=== PATIENT | female | born 1975 | race Caucasian/White ===

== ENCOUNTER 2021-02-25 16:44 | Inpatient (IN) ==
[2021-02-25] MEDS ORDERED: dexAMETHasone 6 MG in SYRINGE 0 ML IV ONE (17:10)
--- NOTE | 2021-02-25 17:21 | Emergency Department Note ---
History of Present Illness General Chief complaint: Shortness of Breath/Dyspnea Stated complaint: +COVID / SOB Time Seen by Provider: 02/25/21 16:52 Source: patient History of Present Illness Provider complaint: Shortness of breath Onset (ago): week(s) Location: chest Pain Consistency: + constant Quality: + other (Shortness of breath) Relieved By: + other (Oxygen) Associated symptoms: + chest pain (Central chest pain only when she coughs. No pain now.), + cough, + fever/chills (Chills no recorded fever), + malaise, + nausea/vomiting and + shortness of breath This is a 45-year-old female with no significant past medical history presenting with shortness of breath and flulike symptoms for the past week. The patient was tested for COVID-19 and tested +2 days ago. She has vomiting and diarrhea. She complains of shortness of breath which is now better on oxygen. She has a nonproductive cough as well as chills and tactile temperatures. She denies any recorded fever. She is not sure if she can taste or smell. She has chest pain but only when she coughs. She states it is in the central part of her chest and she does not have any now. She has had some leg swelling as she states that she has been in bed most of the time this week. She feels malaise. She denies any leg pain or cigarette use. She has not been vaccinated for Covid. Home Medications Medication Instructions Recorded Confirmed Type Unobtainable 02/25/21 02/25/21 History Allergies Allergy/AdvReac Type Severity Reaction Status Date / Time Unable to Assess Allergy Unverified 02/25/21 20:28 Past Med/Surg History Medical History No pertinent past medical history Social History Smoking Status: Never smoker Feels Safe at Home: Yes Review of Systems See HPI for pertinent positives & negatives. and A total of 10 systems reviewed and were otherwise negative Physical Exam Vital Signs Vital Signs - 24 hr 02/25/21 16:59 02/25/21 17:41 02/25/21 18:30 Pulse Rate 106 H Pulse Rate [Left] 115 H Respiratory Rate 18 24 Respiratory Depth Shallow Respiratory Pattern Tachypnea Blood Pressure 123/79 Blood Pressure [Left Arm] 114/76 Blood Pressure Mean 93 Blood Pressure Mean [Left Arm] 88 Pulse Oximetry 97 92 Oxygen Delivery Method Nasal Cannula Oxygen Flow Rate 6 Sepsis Recent Fever Within 48 Hours No Sepsis New/Unexplained Change in Mental Status No Sepsis Action Taken by Nursing No Action Required 02/25/21 20:02 Pulse Rate 102 H Pulse Rate [Left] 102 H Respiratory Rate 24 Respiratory Depth Respiratory Pattern Blood Pressure Blood Pressure [Left Arm] 112/87 Blood Pressure Mean Blood Pressure Mean [Left Arm] 95 Pulse Oximetry 95 Oxygen Delivery Method Nasal Cannula Oxygen Flow Rate 6 Sepsis Recent Fever Within 48 Hours Sepsis New/Unexplained Change in Mental Status Sepsis Action Taken by Nursing Constitutional: Vital signs reviewed. Eyes: Pupils are equal round reactive to light. Conjunctiva are noninjected. ENT: Pharynx is clear without erythema or exudate. Mucous membranes are slightly dry. Neck supple without meningeal signs. Respiratory: Crackles right base. Scattered rhonchi. Breath sounds are equal bilaterally. Cardiovascular: Tachycardic. Regular rhythm. GI: Soft, nondistended and nontender. Bowel sounds are present. Musculoskeletal: No peripheral edema. No lower extremity tenderness. Integumentary: No cyanosis. or jaundice. Neurological: The patient is awake and alert. No focal deficits. Psychiatric: Normal affect. Not anxious appearing. Course Administered Medications Heparin Sodium/Dextrose (Heparin Sodium/Dextrose) 25,000 units in 500 mls @ 0.02 mls/hr IV .Q[facility]H [facility]; Protocol Stop: 03/27/21 18:44 Last Admin: 02/25/21 18:56 Dose: 1,400 units/hr, 28 mls/hr Documented by: [id number] Cosigned by: [id number] Discontinued Medications Dexamethasone (Dexamethasone Sod Inj 4 Mg/Ml Vial) Confirm Administered Dose 8 mg .ROUTE .STK-MED ONE Stop: 02/25/21 17:29 Last Admin: 02/25/21 17:30 Dose: 8 mg Documented by: [id number] Heparin Sodium (Porcine) (Heparin Sod (Porcine) 1000 Unit/Ml) 1 units IV NOW ONE Stop: 02/25/21 18:45 Last Admin: 02/25/21 18:56 Dose: 5,000 units Documented by: [id number] Cosigned by: [id number] Dexamethasone 6 mg/ Syringe 1.5 mls @ 1 mls/min IV ONE ONE Stop: 02/25/21 17:11 Last Admin: 02/25/21 18:38 Dose: Not Given Documented by: [id number] Remdesivir 200 mg/ Sodium (Chloride) 250 mls @ 125 mls/hr IV ONE STA; Protocol Stop: 02/25/21 22:11 Last Admin: 02/25/21 21:07 Dose: 125 mls/hr Documented by: [id number] Ioversol (Optiray 320 125ml) 116 ml IV ONCE ONE Stop: 02/25/21 17:58 Last Admin: 02/25/21 17:57 Dose: 116 ml Documented by: [id number] Ondansetron HCl (Ondansetron Inj 2 Mg/Ml 2 Ml Vial) 4 mg IV NOW STA Stop: 02/25/21 17:24 Last Admin: 02/25/21 17:31 Dose: 4 mg Documented by: [id number] Critical Care Time Critical Care Time: Yes Total Critical Care Time: 45 I have personally spent approximately 45 minutes of critical care time in the direct management of this patient. This includes bedside care, interpretation of diagnostic studies, and testing, discussion with consultants, patient, and family members, and other required patient management activities. These minutes are in excess of all separately billable procedures. Medical Decision Making Differential Diagnosis COVID-19, multifocal pneumonia, hypoxemia, pulmonary embolism, pleural effusion Medical Records Attestation: I reviewed the patient's medical records. I did perform a limited focused review of portions of the patient's old chart on the electronic medical record. The patient has had no recent pertinent visits to this hospital. Home Medications Current Medication List: was personally reviewed by me Laboratory Data Attestation: I reviewed the patient's lab results. Result diagrams: 02/25/21 17:15 02/25/21 17:15 Lab Results 02/25/21 02/25/21 02/25/21 Range/Units 17:15 17:15 17:15 WBC 6.21 (4.8-10.8) K/uL RBC 5.10 (4.2-5.4) M/uL Hgb 14.5 (12.0-16.0) g/dL Hct 43.2 (37-47) % MCV 84.7 (80-100) fL MCH 28.4 (25-34) pg MCHC 33.6 (32-36) g/dL RDW Std Deviation 38.9 (36.4-46.3) fL RDW Coeff of Elias 12.5 (11.5-14.5) % Plt Count 204 (130-400) K/uL MPV 11.3 H (7.4-10.4) fL Immature Gran % (Auto) 0.3 % Neut % (Auto) 73.0 % Lymph % (Auto) 18.5 % Wilcox % (Auto) 7.4 % Eos % (Auto) 0.3 % Baso % (Auto) 0.5 % Neut # (Auto) 4.53 (1.4-6.5) K/uL Lymph # (Auto) 1.15 L (1.2-3.4) K/uL Wilcox # (Auto) 0.46 (0.11-0.59) K/uL Eos # (Auto) 0.02 (0-0.5) K/uL Baso # (Auto) 0.03 (0-0.2) K/uL Immature Gran # (Auto) 0.02 (0.00-0.02) K/uL PT Cancelled INR Cancelled APTT Cancelled PTT Ratio Cancelled D-Dimer Cancelled Sodium 138 (136-145) mmol/L Potassium 3.8 (3.5-5.1) mmol/L Chloride 106 (98-107) mmol/L Carbon Dioxide 20 L (21-32) mmol/L Anion Gap 13.0 H (3-11) BUN 25 H (7-18) mg/dl Creatinine 0.89 (0.6-1.2) mg/dl Est Cr Clr Drug Dosing 101.3 ml/min Est GFR ( Amer) 92.0 ml/min Est GFR (Non-Af Amer) 79.4 ml/min BUN/Creatinine Ratio 27.7 H (10-20) Glucose 211 H (70-99) mg/dl Calcium 9.4 (8.5-10.1) mg/dl Total Bilirubin 0.5 (0.2-1) mg/dl AST 80 H (15-37) U/L ALT 90 H (12-78) U/L Alkaline Phosphatase 80 (45-117) U/L Troponin I 0.562 H* (0-0.045) ng/ml C-Reactive Protein 6.71 H (0-0.29) mg/dl Total Protein 8.1 (6.4-8.2) gm/dl Albumin 3.1 L (3.4-5.0) gm/dl Globulin 5.0 H (2.5-4.0) gm/dl Albumin/Globulin Ratio 0.6 L (0.9-2) 02/25/21 02/25/21 Range/Units 18:23 18:23 WBC (4.8-10.8) K/uL RBC (4.2-5.4) M/uL Hgb (12.0-16.0) g/dL Hct (37-47) % MCV (80-100) fL MCH (25-34) pg MCHC (32-36) g/dL RDW Std Deviation (36.4-46.3) fL RDW Coeff of Elias (11.5-14.5) % Plt Count (130-400) K/uL MPV (7.4-10.4) fL Immature Gran % (Auto) % Neut % (Auto) % Lymph % (Auto) % Wilcox % (Auto) % Eos % (Auto) % Baso % (Auto) % Neut # (Auto) (1.4-6.5) K/uL Lymph # (Auto) (1.2-3.4) K/uL Wilcox # (Auto) (0.11-0.59) K/uL Eos # (Auto) (0-0.5) K/uL Baso # (Auto) (0-0.2) K/uL Immature Gran # (Auto) (0.00-0.02) K/uL PT 11.5 INR 1.1 APTT 23.4 PTT Ratio 0.9 D-Dimer 15453 H* Sodium (136-145) mmol/L Potassium (3.5-5.1) mmol/L Chloride (98-107) mmol/L Carbon Dioxide (21-32) mmol/L Anion Gap (3-11) BUN (7-18) mg/dl Creatinine (0.6-1.2) mg/dl Est Cr Clr Drug Dosing ml/min Est GFR ( Amer) ml/min Est GFR (Non-Af Amer) ml/min BUN/Creatinine Ratio (10-20) Glucose (70-99) mg/dl Calcium (8.5-10.1) mg/dl Total Bilirubin (0.2-1) mg/dl AST (15-37) U/L ALT (12-78) U/L Alkaline Phosphatase (45-117) U/L Troponin I (0-0.045) ng/ml C-Reactive Protein Cancelled (0-0.29) mg/dl Total Protein (6.4-8.2) gm/dl Albumin (3.4-5.0) gm/dl Globulin (2.5-4.0) gm/dl Albumin/Globulin Ratio (0.9-2) Imaging Data Radiologist's Impression: Chest CTA 02/25/21 17:08 CT ANGIOGRAM OF THE CHEST CLINICAL HISTORY: Dyspnea. Covid. COMPARISON STUDY: No priors. TECHNIQUE: Following the IV administration of 116 cc of Optiray 320, CT angiogram of the chest was performed from the upper abdomen to the thoracic inlet utilizing the pulmonary embolus protocol. Images are reviewed in the axial, sagittal, and coronal planes. 3-D MIPS images are created and assessed. IV contrast was administered without complication. A dose lowering technique was utilized adhering to the principles of ALARA. CT DOSE: 499.24 mGycm FINDINGS: Thyroid: Imaged portions of the thyroid gland are normal in size and attenuation. Thoracic aorta: The thoracic aorta is normal in caliber and demonstrates standard 3-vessel arch anatomy. No dissection is seen. Pulmonary vasculature: The pulmonary trunk is normal in caliber. There is thrombus within the distal right main pulmonary artery. This extends into the right upper, middle, and lower lobe pulmonary arteries into segmental and subseg mental branches. There is poor embolus within the distal left main pulmonary artery. This extends into the left upper and lower lobe pulmonary arteries into segmental and subsegmental branches. Heart: The heart is normal in size and without pericardial effusion. Lungs and pleural spaces: Evaluation of the lung parenchyma is compromised by motion artifact. Extensive/multifocal airspace consolidation is seen throughout both lungs. No pleural effusion is identified. The trachea and central airways are clear. Mediastinum: There is no mediastinal lymphadenopathy. Marily: Clear. Axillae: There is no axillary lymphadenopathy. Upper abdomen: Partially visualized upper abdominal viscera is within normal limits. Skeletal structures: No lytic or blastic bony lesions are seen. IMPRESSION: 1. Extensive bilateral pulmonary embolus as detailed above. 2. Diffuse/multifocal airspace consolidation is seen throughout both lungs and c onsistent with the reported history of a viral pneumonia. Radiographic follow-up to resolution is recommended. 3. No pleural effusion. 4. Additional findings as above. ACT 112: Negative or not required by law. Electronically signed by: Saeid Ashley M.D. 02/25/2021 6:21 PM ECG Data Attestation: I personally reviewed and interpreted this ECG as follows: Indication: + chest pain and + SOB/dyspnea Rate (beats per minute): [address] segments: + T-wave inversions (Anterolateral) ECG Findings: + Other (Atrial enlargement); no PVCs Comparison ECG Date: no prior available MDM Narrative I did evaluate the patient as noted above. She is presenting with shortness of breath and flulike symptoms. She was diagnosed with COVID-19 2 days ago. She has had symptoms for a week. I did obtain history from the patient via a [place]onian revising clerk. The patient is hypoxemic with a pulse ox of 85% on room air. She was placed on supplemental oxygen via nasal cannula. Her O2 saturation went up to 97%. IV access was established. I did treat her with dexamethasone [address] I did place an order for continuous cardiac monitoring. The monitor showed sinus tachycardia at a rate of 108 bpm. I did order and personally review the patient's 12-lead EKG as described above. She has some T wave inversions anterior laterally. No ST elevations. No prior EKGs available. She does state that her chest pain is only present when she coughs and is currently gone. I did order and review the patient's blood work as noted in the electronic medical record. CBC is unremarkable without leukocytosis or anemia. Electrolytes shows a carbon dioxide of 20 likely from her tachypnea. LFTs are elevated with an AST and ALT of 80 and 90. Glucose is elevated at 211 as well. Troponin is elevated at 0.562. D-dimer is over 13,000. I did order a CT angiogram of the chest. I did review the images myself as well as the radiology report as described above. She has extensive bilateral pulmonary emboli. She also has diffuse multifocal airspace consolidations consistent with pneumonia. I did treat the patient with heparin including a bolus and a continuous drip. The patient was informed of her test results. I did discuss the case with the hospitalist and child welfare caseworker. Impression & Plan Acute hypoxemic respiratory failure, Multifocal pneumonia, Pulmonary embolism, bilateral, COVID-19, Hyperglycemia Discharge Plan Visit Data Chief Complaint: Shortness of Breath/Dyspnea Stated Complaint: +COVID / SOB ED Provider: Tian العراقي Discharge Problem: Acute hypoxemic respiratory failure, Multifocal pneumonia, Pulmonary embolism, bilateral, COVID-19, Hyperglycemia Patient Disposition: Admitted As Inpatient Forms Stand Alone Forms: My [facility] Prescriptions Prescriptions: No Action Unobtainable RF: 0 Referrals Referrals: PCP,NO [Primary Care Provider] -
[2021-02-25] MEDS ORDERED: ONDANSETRON INJ 2 MG/ML 2 ML VIAL IV STA (17:23)
[2021-02-25 17:27] LABS: Basophils # (auto) 0.03 K/uL (0-0.2); Basophils % (auto) 0.5 %; Eosinophils # (auto) 0.02 K/uL (0-0.5); Eosinophils % (auto) 0.3 %; Hematocrit (blood only) 43.2 % (37-47); Hemoglobin 14.5 g/dL (12.0-16.0); Immature Granulocytes # (auto) 0.02 K/uL (0.00-0.02); Immature Granulocytes % (auto) 0.3 %; Lymphocytes # (auto) 1.15 K/uL (1.2-3.4); Lymphocytes % (auto) 18.5 %; Mean Corpuscular Hemoglobin 28.4 pg (25-34); Mean Corpuscular Hgb Conc 33.6 g/dL (32-36); Mean Corpuscular Volume 84.7 fL (80-100); Mean Platelet Volume 11.3 fL (7.4-10.4); Monocytes # (auto) 0.46 K/uL (0.11-0.59); Monocytes % (auto) 7.4 %; Neutrophils # (auto) 4.53 K/uL (1.4-6.5); Platelet Count 204 K/uL (130-400); RDW Coefficient of Variation 12.5 % (11.5-14.5); RDW Standard Deviation 38.9 fL (36.4-46.3); White Blood Count 6.21 K/uL (4.8-10.8)
[2021-02-25] MEDS ORDERED: DEXAMETHASONE SOD INJ 4 MG/ML VIAL ONE (17:28)
[2021-02-25 17:46] LABS: Albumin Level 3.1 gm/dl (3.4-5.0); BUN Creatinine Ratio 27.7 (10-20); Calcium 9.4 mg/dl (8.5-10.1); Creatinine Clr Calc Pharmacy 101.3 ml/min; Est GFR (Non-African American) 79.4 ml/min; Potassium 3.8 mmol/L (3.5-5.1)
[2021-02-25] MEDS ORDERED: OPTIRAY 320 125ml IV ONE (17:57)
[2021-02-25 18:12] LABS: Albumin Globulin Ratio 0.6 (0.9-2); Bilirubin,Total 0.5 mg/dl (0.2-1); Total Protein 8.1 gm/dl (6.4-8.2); Troponin I 0.562 ng/ml (0-0.045)
--- NOTE | 2021-02-25 18:22 | CT Scan Report ---
CT ANGIOGRAM OF THE CHEST CLINICAL HISTORY: Dyspnea. Covid. COMPARISON STUDY: No priors. TECHNIQUE: Following the IV administration of 116 cc of Optiray 320, CT angiogram of the chest was pe rformed from the upper abdomen to the thoracic inlet utilizing the pulmonary embolus protocol. Images are reviewed in the axial, sagittal, and coronal planes. 3-D MIPS images are created and assessed. I V contrast was administered without complication. A dose lowering technique was utilized adhering to the principles of ALARA. CT DOSE: 499.24 mGycm FINDINGS: Thyroid: Imaged portions of the thyroid gland are normal in size and attenuation. Thoracic aorta: The thoracic aorta is normal in caliber and demonstrates standard 3-vessel arch anato my. No dissection is seen. Pulmonary vasculature: The pulmonary trunk is normal in caliber. There is thrombus within the distal right main pulmonary artery. This extends into the right upper, middle, and lower lobe pulmonary ludy spencer into segmental and subsegmental branches. There is poor embolus within the distal left main pulm onary artery. This extends into the left upper and lower lobe pulmonary arteries into segmental and s ubsegmental branches. Heart: The heart is normal in size and without pericardial effusion. Lungs and pleural spaces: Evaluation of the lung parenchyma is compromised by motion artifact. Extens yelena/multifocal airspace consolidation is seen throughout both lungs. No pleural effusion is identifie d. The trachea and central airways are clear. Mediastinum: There is no mediastinal lymphadenopathy. Marily: Clear. Axillae: There is no axillary lymphadenopathy. Upper abdomen: Partially visualized upper abdominal viscera is within normal limits. Skeletal structures: No lytic or blastic bony lesions are seen. IMPRESSION: 1. Extensive bilateral pulmonary embolus as detailed above. 2. Diffuse/multifocal airspace consolidation is seen throughout both lungs and consistent with the re ported history of a viral pneumonia. Radiographic follow-up to resolution is recommended. 3. No pleural effusion. 4. Additional findings as above. ACT 112: Negative or not required by law. Electronically signed by: Saeid Ashley M.D. 02/25/2021 6:21 PM
[2021-02-25] MEDS ORDERED: Heparin IV Adult Wt-Based Standard WITH Bolus Protocol IV STA (18:29)
[2021-02-25] MEDS ORDERED: HEPARIN SOD (PORCINE) 1000 UNIT/ML IV ONE (18:44)
[2021-02-25] MEDS: HEPARIN SODIUM/DEXTROSE 25,000 UNITS/500 ML BAG IV SCH (18:56)
[2021-02-25 19:13] LABS: C Reactive Protein 6.71 mg/dl (0-0.29)
[2021-02-25 19:14] LABS: INR 1.1 (0.9-1.1); Partial Thromboplastin Ratio 0.9; Partial Thromboplastin Time 23.4 Seconds (21.0-31.0); Prothrombin Time 11.5 Seconds (9.0-12.0)
[2021-02-25 19:29] LABS: D Dimer 13520 ug/L FEU (0-500)
[2021-02-25] MEDS ORDERED: REMDESIVIR 200 MG in SODIUM CHLORIDE 0.9% 210 ML IV STA (20:12)
--- NOTE | 2021-02-25 21:23 | History and Physical Report ---
DATE OF ADMISSION: 02/25/2021 CHIEF COMPLAINT: Shortness of breath. HISTORY OF PRESENT ILLNESS: This is a 45-year-old female with no significant past medical history who presents with shortness of breath. The patient does not speak Swazi. She is from [place]. I used translation services to get a history and physical. The patient says she has symptoms for more than a week now with cough, shortness of breath, poor appetite, loss of sense of smell and taste. She tested COVID positive. As per the ER, patient was tested COVID positive 2 days ago, comes with worsening shortness of breath. She denies any headache. No blurred visions, no earache, no runny nose, no sore throat, denies any chest pain, no nausea, no vomiting. She has some abdominal discomfort when she tries to eat. She is not moving her bowels because she is not eating. Normal bladder movements. Denies any hematuria or burning micturition. No rash. No travel history. Not vaccinated. In the ER, she was hypoxemic, currently requiring 6 liters of oxygen. With oxygen, she is resting comfortably and able to answering comfortably. PAST MEDICAL HISTORY: As mentioned above. PAST SURGICAL HISTORY: None. MEDICATIONS: None. FAMILY HISTORY: Father had stomach cancer, mother had diabetes. SOCIAL HISTORY: Denies any smoking, no alcohol use. REVIEW OF SYSTEMS: As per HPI. Rest of the review of systems is negative. PHYSICAL EXAMINATION: GENERAL: The patient is obese, not in acute distress. VITAL SIGNS: Temperature afebrile, pulse 102, respiratory rate 24, blood pressure 112/87, oxygen 95% on 6 liters. HEENT: Pupils equal, round and reactive to light. Oral mucosa moist. NECK: No JVD or neck masses. CARDIOVASCULAR: S1 and S2 heard. Regular rate and rhythm. No murmur, no gallop. RESPIRATORY: Normal AP diameter. No accessory muscle use. Mild bibasilar crackles. No wheezing. ABDOMEN: Soft, bowel sounds present, nontender, no distention. CENTRAL NERVOUS SYSTEM: Alert and awake. Obeys commands. No facial droop. Speech is clear. Moves extremities. EXTREMITIES: No edema, no erythema. LABORATORY DATA: WBC 6.2, hemoglobin 14.4, hematocrit 43.2, platelets 204. PT is 11.5, INR 1.1, APTT 23.4. D-dimer 13,520. Sodium 138, potassium 3.8, chloride 106, bicarbonate 20, BUN 25, creatinine 0.8, serum glucose 211, calcium 9.4, total bilirubin 0.5, AST 80, ALT 90, alkaline phosphatase 88. Troponin I of 0.56. C-reactive protein 6.7. IMAGING DATA: CT of the chest: Extensive bilateral pulmonary embolus, diffuse multifocal airspace consolidation seen throughout both lung worthy consistent with reported history of viral pneumonia. No pleural effusions. EKG: Sinus tachycardia at a rate of 106. Q waves in inferior leads. ASSESSMENT AND PLAN: This is a 45-year-old female who presents with COVID pneumonia, hypoxia and pulmonary embolism. 1. COVID pneumonia, hypoxia: Requiring 6 liters of oxygen currently. Bilateral extensive infiltrates in the CAT scan. Meets criteria for remdesivir. Emergency Room gave her Decadron. We will continue with Decadron 6 mg daily and remdesivir and follow the remdesivir laboratories. We will also follow inflammatory markers. We will repeat CRP in a.m. and troponin in a.m. and LDH, ferritin. We will also follow up on D-dimer and procalcitonin levels. Closely monitor in the telemetry floor. 2. Elevated troponin: Mostly from demand ischemia from above. We will follow serial enzymes. Consider getting an echocardiogram. 3. Diabetes: The patient has no known history of diabetes. The patient has family history of diabetes, her mother had diabetes. Sugars are 211. We will follow HbA1c level. We will place her on Lantus 5 units b.i.d. and insulin sliding scale. Follow blood sugars while the patient on steroids. 4. Bilateral pulmonary embolism on CAT scan: Started on IV heparin, which we will continue. Can consider lower extremity Doppler and echocardiogram. 5. Deep venous thrombosis prophylaxis: On IV heparin. DISPOSITION: Closely monitor in tele floor. Level 1 full code. Expect to discharge home and follow with family doctor. Job ID: [id number] [facility]
[2021-02-25] MEDS ORDERED: NITROGLYCERIN SL 0.4 MG/TAB TAB SL PRN (23:05)
[2021-02-25] MEDS ORDERED: ACETAMINOPHEN 325 MG TAB PO PRN (23:05)
[2021-02-25] MEDS ORDERED: ONDANSETRON INJ 2 MG/ML 2 ML VIAL IV PRN (23:05)
[2021-02-26] MEDS: SODIUM CHLORIDE 0.9% 10ML FLUSH IV SCH (02:46)
[2021-02-26 03:43] LABS: Partial Thromboplastin Ratio 1.7; Partial Thromboplastin Time 44.8 Seconds (21.0-31.0)
[2021-02-26] MEDS: Heparin IV Adult Wt-Based Standard WITH Bolus Protocol IV SCH ×17 (04:23→17:33)
[2021-02-26 05:56] LABS: Basophils # (auto) 0.01 K/uL (0-0.2); Basophils % (auto) 0.2 %; Hematocrit (blood only) 40.2 % (37-47); Hemoglobin 13.7 g/dL (12.0-16.0); Immature Granulocytes # (auto) 0.02 K/uL (0.00-0.02); Immature Granulocytes % (auto) 0.4 %; Lymphocytes # (auto) 0.91 K/uL (1.2-3.4); Mean Corpuscular Hemoglobin 28.5 pg (25-34); Mean Corpuscular Hgb Conc 34.1 g/dL (32-36); Mean Corpuscular Volume 83.8 fL (80-100); Mean Platelet Volume 11.1 fL (7.4-10.4); Monocytes # (auto) 0.44 K/uL (0.11-0.59); Monocytes % (auto) 9.2 %; Neutrophils % (auto) 71.2 %; Platelet Count 190 K/uL (130-400); RDW Coefficient of Variation 12.5 % (11.5-14.5); White Blood Count 4.78 K/uL (4.8-10.8)
[2021-02-26 06:34] LABS: Albumin Level 2.7 gm/dl (3.4-5.0); BUN Creatinine Ratio 29.7 (10-20); Bilirubin Direct 0.2 mg/dl (0-0.2); Calcium 8.8 mg/dl (8.5-10.1); Est GFR (African American) 124.8 ml/min; Est GFR (Non-African American) 107.7 ml/min; Magnesium 2.6 mg/dl (1.8-2.4); Potassium 3.7 mmol/L (3.5-5.1)
[2021-02-26 06:43] LABS: Bilirubin,Total 0.4 mg/dl (0.2-1); C Reactive Protein 6.36 mg/dl (0-0.29); Ferritin 372.8 ng/ml (8-388); Total Protein 7.3 gm/dl (6.4-8.2); Troponin I 0.38 ng/ml (0-0.045)
[2021-02-26 06:47] LABS: Estimated Average Glucose 217 mg/dl; Hemoglobin A1C 9.2 % (4.5-5.6)
[2021-02-26 06:59] LABS: D Dimer 16020 ug/L FEU (0-500)
[2021-02-26] MEDS: INSULIN ASPART 100 UNITS/ML 3 ML PEN SC SCH ×5 (09:17→21:00)
[2021-02-26] MEDS: INSULIN GLARGINE SOLOSTAR 100 UNITS/ML 3 ML PEN SC SCH ×3 (09:20→21:00)
--- NOTE | 2021-02-26 09:31 | Electrocardiogram Report ---
Test Reason : Blood Pressure : / mmHG Vent. Rate : 106 BPM Atrial Rate : 106 BPM P-R Int : 132 ms QRS Dur : 074 ms QT Int : 338 ms P-R-T Axes : 039 -10 -21 degrees QTc Int : 448 ms Sinus tachycardia Possible Left atrial enlargement possible Inferior infarct , age undetermined Abnormal ECG No previous ECGs available Confirmed by Chandana Mcrae ([id number]) on 02/26/2021 9:31:11 AM Referred By: REFERRED SELF Confirmed By:Benjamin Mcrae
[2021-02-26 11:05] LABS: Partial Thromboplastin Ratio 1.4; Partial Thromboplastin Time 35.9 Seconds (21.0-31.0)
[2021-02-26] MEDS ORDERED: HEPARIN SOD (PORCINE) 1000 UNIT/ML IV ONE (11:30)
[2021-02-26] MEDS ORDERED: GLUCOSE 10 TABS/TUBE PO PRN (11:45)
[2021-02-26] MEDS ORDERED: GLUCAGON FOR INJ 1 MG VIAL IM PRN (11:45)
[2021-02-26] MEDS ORDERED: DEXTROSE 50% 50 ML SYRINGE IV PRN (11:45)
[2021-02-26] MEDS ORDERED: GLUCOSE 40% GEL 15 GM TUBE PO PRN (11:45)
[2021-02-26] MEDS ORDERED: CARBOHYDRATES FOR HYPOGLYCEMIA PO PRN (11:45)
[2021-02-26] MEDS: dexAMETHasone 6 MG in SYRINGE 0 ML IV SCH (12:05)
[2021-02-26] MEDS: HEPARIN SODIUM/DEXTROSE 25,000 UNITS/500 ML BAG IV SCH (12:07)
--- NOTE | 2021-02-26 18:25 | Hospitalist Progress Note ---
Date of Service February 26, 2021 Assessment & Plan (1) Acute hypoxemic respiratory failure: Plan: Secondary to COVID-19 pneumonia and pulmonary embolism Has been maintaining saturation with 2 L of nasal cannula Remains stable and may be a little bit better compared with yesterday (2) COVID-19: Plan: Family members has had Covid but without symptoms She has diagnosed with Covid during this admission (3) Multifocal pneumonia: Plan: Secondary to COVID-19 pneumonia Has been getting remdesivir and dexamethasone Requiring 2 L of oxygen to maintain saturation We will continue current treatment We will give cough suppressants as needed (4) Pulmonary embolism, bilateral: Plan: Noted to have bilateral pulmonary embolism Has been getting intravenous heparin Maintenance therapy will be discussed on improvement (5) Hyperglycemia: Plan: May have diabetes We will check hemoglobin A1c Plan: DVT prophylaxis IV heparin Admission and Anticipated Discharge Date Admission Date: February 25, 2021 Subjective 02/26/2021 The patient seen and examined in telemetry unit and in Covid room She has been feeling a little better since admission Has cough and is requiring 2 L of oxygen to maintain saturation Review of Systems Review of Systems: All systems reviewed and are unremarkable except as noted below Respiratory: + cough, + chest congestion and + dyspnea Physical Exam Physical Exam: Sitting at the edge of the bed with shortness of breath Constitutional: well developed, well nourished, + ill appearing and + obese Eyes: PERRL, conjunctivae normal, anicteric sclerae ENMT: external ear and nose normal, oropharynx normal Neck: trachea midline, no thyromegaly Respiratory: + respiratory distress, + labored breathing and + uses accessory muscles Auscultation: + diminished lung sounds and + crackles (Bibasilar crackles) Cardiovascular: Rate/Rhythm: regular rate and regular rhythm; not tachycardic Heart Sounds: normal S1 and normal S2; no murmur Gastrointestinal (Abdomen): normal bowel sounds, soft, nontender, no hepatosplenomegaly Musculoskeletal: No acute arthritis in any joint Neurologic: Alert, awake and oriented x3 Lymphatic: no cervical or axillary lymphadenopathy Results & Data Results & Data ([facility]) Vital Signs (Past 12 Hours) Vital Signs Temp Pulse Pulse Resp BP Pulse Ox 02/26/21 15:00 36.7 C 73 22 127/79 95 02/26/21 11:53 36.4 C L 85 20 126/72 93 02/26/21 07:54 36.5 C 87 18 117/77 91 02/26/21 07:15 78 Laboratory Results Short CBC 02/26/21 Range/Units 05:23 WBC 4.78 L (4.8-10.8) K/uL Hgb 13.7 (12.0-16.0) g/dL Hct 40.2 (37-47) % Plt Count 190 (130-400) K/uL BMP 02/26/21 05:23 Sodium 139 Potassium 3.7 Chloride 105 Carbon Dioxide 24 BUN 20 H Creatinine 0.67 Glucose 256 H Calcium 8.8 Cardiac Enzymes 02/26/21 02/26/21 Range/Units 05:23 10:42 Troponin I 0.380 H* 0.279 H* (0-0.045) ng/ml Liver Function 02/26/21 Range/Units 05:23 Total Bilirubin 0.4 (0.2-1) mg/dl Direct Bilirubin 0.2 (0-0.2) mg/dl AST 42 H (15-37) U/L ALT 68 (12-78) U/L Alkaline Phosphatase 75 (45-117) U/L Albumin 2.7 L (3.4-5.0) gm/dl Medications Administered Current Inpatient Medications Acetaminophen (Acetaminophen 325 Mg Tab) 650 mg PO Q4H PRN PRN Reason: Pain or Fever Stop: 03/27/21 23:04 Dextrose (Dextrose 50% 50 Ml Syringe) 25 - 50 ml IV UD PRN; Protocol PRN Reason: Hypoglycemia Protocol Stop: 03/28/21 11:44 Glucagon (Glucagon For Inj 1 Mg Vial) 1 mg IM UD PRN; Protocol PRN Reason: Hypoglycemia Protocol Stop: 03/28/21 11:44 Glucose (Glucose 40% Gel 15 Gm Tube) 15 - 30 gm PO UD PRN; Protocol PRN Reason: Hypoglycemia Protocol Stop: 03/28/21 11:44 Glucose (Glucose 10 Tabs/Tube) 4 - 8 tabs PO UD PRN; Protocol PRN Reason: Hypoglycemia Protocol Stop: 03/28/21 11:44 Heparin Sodium/Dextrose (Heparin Sodium/Dextrose) 25,000 units in 500 mls @ 33 mls/hr IV .[id number] [facility]; Protocol Stop: 03/27/21 18:44 Last Admin: 02/26/21 12:07 Dose: 1,650 units/hr, 33 mls/hr Documented by: Remdesivir 100 mg/ Sodium (Chloride) 250 mls @ 250 mls/hr IV Q24H [facility]; Protocol Stop: 03/01/21 20:59 Dexamethasone 6 mg/ Syringe 1.5 mls @ 1 mls/min IV DAILY [facility] Stop: 03/08/21 11:59 Last Admin: 02/26/21 12:05 Dose: 1 mls/min Documented by: Insulin Aspart (Insulin Aspart 100 Units/Ml 3 Ml Pen) 0 units SC ACHS [facility] Stop: 03/27/21 23:29 Last Admin: 02/26/21 17:25 Dose: 9 units Documented by: Insulin Glargine (Insulin Glargine Solostar 100 Units/Ml 3 Ml Pen) 5 units SC BID [facility] Stop: 03/27/21 23:29 Last Admin: 02/26/21 09:20 Dose: 5 units Documented by: Miscellaneous (Carbohydrates For Hypoglycemia ) 15 - 30 gm PO UD PRN PRN Reason: Hypoglycemia Treatment Stop: 03/28/21 11:44 Nitroglycerin (Nitroglycerin Sl 0.4 Mg/Tab Tab) 0.4 mg SL UD PRN PRN Reason: Chest Pain Stop: 03/27/21 23:04 Ondansetron HCl (Ondansetron Inj 2 Mg/Ml 2 Ml Vial) 4 mg IV Q6H PRN PRN Reason: Nausea Stop: 03/27/21 23:04 Sodium Chloride (Sodium Chloride 0.9% 10ml Flush) 30 ml IV DAILY@2100 [facility] Stop: 03/01/21 21:01 Last Admin: 02/26/21 02:46 Dose: 30 ml Documented by:
[2021-02-26 18:41] LABS: Partial Thromboplastin Ratio 2.1
[2021-02-26 18:45] LABS: Partial Thromboplastin Time 54.5 Seconds (21.0-31.0)
[2021-02-26] MEDS: REMDESIVIR 100 MG in SODIUM CHLORIDE 0.9% 230 ML IV SCH (20:00)
[2021-02-27] MEDS: SODIUM CHLORIDE 0.9% 10ML FLUSH IV SCH ×2 (03:36→22:24)
[2021-02-27 06:29] LABS: Hematocrit (blood only) 40.2 % (37-47); Hemoglobin 13.4 g/dL (12.0-16.0); Mean Corpuscular Hemoglobin 28.2 pg (25-34); Mean Corpuscular Hgb Conc 33.3 g/dL (32-36); Mean Corpuscular Volume 84.6 fL (80-100); Mean Platelet Volume 10.8 fL (7.4-10.4); Platelet Count 200 K/uL (130-400); RDW Coefficient of Variation 12.3 % (11.5-14.5); Red Blood Count 4.75 M/uL (4.2-5.4); White Blood Count 7.12 K/uL (4.8-10.8)
[2021-02-27 06:56] LABS: Basophils # (auto) 0.01 K/uL (0-0.2); Basophils % (auto) 0.1 %; Immature Granulocytes # (auto) 0.04 K/uL (0.00-0.02); Immature Granulocytes % (auto) 0.6 %; Lymphocytes # (auto) 1.46 K/uL (1.2-3.4); Lymphocytes % (auto) 20.5 %; Monocytes # (auto) 0.78 K/uL (0.11-0.59); Neutrophils # (auto) 4.83 K/uL (1.4-6.5); Neutrophils % (auto) 67.8 %
[2021-02-27 07:08] LABS: BUN Creatinine Ratio 42.1 (10-20); C Reactive Protein 3.27 mg/dl (0-0.29); Calcium 8.7 mg/dl (8.5-10.1); Creatinine Clr Calc Pharmacy 201.5 ml/min; Est GFR (African American) 142.2 ml/min; Est GFR (Non-African American) 122.7 ml/min; Magnesium 1.7 mg/dl (1.8-2.4); Phosphorus 3.4 mg/dl (2.5-4.9); Potassium 3.8 mmol/L (3.5-5.1)
[2021-02-27 07:11] LABS: Partial Thromboplastin Ratio 2.1
[2021-02-27 07:14] LABS: Partial Thromboplastin Time 56.4 Seconds (21.0-31.0)
[2021-02-27] MEDS: dexAMETHasone 6 MG in SYRINGE 0 ML IV SCH (09:02)
[2021-02-27] MEDS: INSULIN GLARGINE SOLOSTAR 100 UNITS/ML 3 ML PEN SC SCH ×2 (09:10→20:58)
[2021-02-27] MEDS: INSULIN ASPART 100 UNITS/ML 3 ML PEN SC SCH ×4 (09:11→20:58)
--- NOTE | 2021-02-27 16:34 | Hospitalist Progress Note ---
Date of Service February 27, 2021 Assessment & Plan (1) Acute hypoxemic respiratory failure: Plan: Secondary to COVID-19 pneumonia and pulmonary embolism She feels a little better but is still requiring more oxygen up to 6 L/min to maintain saturation (2) COVID-19: Plan: Family members has had Covid but without symptoms She has diagnosed with Covid during this admission (3) Multifocal pneumonia: Plan: Secondary to COVID-19 pneumonia Has been getting remdesivir and dexamethasone Requiring 2 L of oxygen to maintain saturation We will continue current treatment Has been complaining of cough and congestion Inflammatory markers are improving We will try small dose of Lasix and continue with cough suppressant (4) Pulmonary embolism, bilateral: Plan: Noted to have bilateral pulmonary embolism Has been getting intravenous heparin Maintenance therapy will be discussed on improvement We will discuss about Coumadin and or DOAC from tomorrow (5) Hyperglycemia: Plan: May have diabetes We will check hemoglobin [id number] at 9.2 Will need antidiabetic medication on discharge Plan: DVT prophylaxis IV heparin Admission and Anticipated Discharge Date Admission Date: February 25, 2021 Subjective 02/26/2021 The patient seen and examined in telemetry unit and in Covid room She has been feeling a little better since admission Has cough and is requiring 2 L of oxygen to maintain saturation 02/27/2021 The patient was seen and examined in telemetry unit and in Covid room She has been feeling better but still requiring 6 L of oxygen to maintain saturation Complains to have some cough and minimal shortness of breath Review of Systems Review of Systems: All systems reviewed and are unremarkable except as noted below Respiratory: + cough, + chest congestion and + dyspnea Physical Exam Physical Exam: Sitting at the edge of the bed with shortness of breath Constitutional: well developed, well nourished, + ill appearing and + obese Eyes: PERRL, conjunctivae normal, anicteric sclerae ENMT: external ear and nose normal, oropharynx normal Neck: trachea midline, no thyromegaly Respiratory: + respiratory distress, + labored breathing and + uses accessory muscles Auscultation: + diminished lung sounds and + crackles (Bibasilar crackles) Cardiovascular: Rate/Rhythm: regular rate and regular rhythm; not tachycardic Heart Sounds: normal S1 and normal S2; no murmur Gastrointestinal (Abdomen): normal bowel sounds, soft, nontender, no hepatosplenomegaly Musculoskeletal: No acute arthritis in any joint Neurologic: Alert, awake and oriented x3 Lymphatic: no cervical or axillary lymphadenopathy Results & Data Results & Data ([facility]) Vital Signs (Past 12 Hours) Vital Signs Temp Pulse Pulse Resp BP Pulse Ox 02/27/21 07:58 36.7 C 67 20 126/77 94 02/27/21 07:00 55 L Laboratory Results Short CBC 02/27/21 Range/Units 06:19 WBC 7.12 (4.8-10.8) K/uL Hgb 13.4 (12.0-16.0) g/dL Hct 40.2 (37-47) % Plt Count 200 (130-400) K/uL BMP 02/27/21 06:19 Sodium 138 Potassium 3.8 Chloride 105 Carbon Dioxide 27 BUN 19 H Creatinine 0.45 L Glucose 257 H Calcium 8.7 Liver Function 02/27/21 Range/Units 06:19 AST 22 (15-37) U/L ALT 50 (12-78) U/L Medications Administered Current Inpatient Medications Acetaminophen (Acetaminophen 325 Mg Tab) 650 mg PO Q4H PRN PRN Reason: Pain or Fever Stop: 03/27/21 23:04 Dextrose (Dextrose 50% 50 Ml Syringe) 25 - 50 ml IV UD PRN; Protocol PRN Reason: Hypoglycemia Protocol Stop: 03/28/21 11:44 Glucagon (Glucagon For Inj 1 Mg Vial) 1 mg IM UD PRN; Protocol PRN Reason: Hypoglycemia Protocol Stop: 03/28/21 11:44 Glucose (Glucose 40% Gel 15 Gm Tube) 15 - 30 gm PO UD PRN; Protocol PRN Reason: Hypoglycemia Protocol Stop: 03/28/21 11:44 Glucose (Glucose 10 Tabs/Tube) 4 - 8 tabs PO UD PRN; Protocol PRN Reason: Hypoglycemia Protocol Stop: 03/28/21 11:44 Heparin Sodium/Dextrose (Heparin Sodium/Dextrose) 25,000 units in 500 mls @ 33 mls/hr IV .[id number] [facility]; Protocol Stop: 03/27/21 18:44 Last Titration: 02/27/21 04:33 Dose: Infused Documented by: Remdesivir 100 mg/ Sodium (Chloride) 250 mls @ 250 mls/hr IV Q24H [facility]; Protocol Stop: 03/01/21 20:59 Last Infusion: 02/26/21 21:00 Dose: Infused Documented by: Dexamethasone 6 mg/ Syringe 1.5 mls @ 1 mls/min IV DAILY [facility] Stop: 03/08/21 11:59 Last Admin: 02/27/21 09:02 Dose: 1 mls/min Documented by: Insulin Aspart (Insulin Aspart 100 Units/Ml 3 Ml Pen) 0 units SC ACHS [facility] Stop: 03/27/21 23:29 Last Admin: 02/27/21 12:22 Dose: 7 units Documented by: Insulin Glargine (Insulin Glargine Solostar 100 Units/Ml 3 Ml Pen) 5 units SC BID [facility] Stop: 03/27/21 23:29 Last Admin: 02/27/21 09:10 Dose: 5 units Documented by: Miscellaneous (Carbohydrates For Hypoglycemia ) 15 - 30 gm PO UD PRN PRN Reason: Hypoglycemia Treatment Stop: 03/28/21 11:44 Nitroglycerin (Nitroglycerin Sl 0.4 Mg/Tab Tab) 0.4 mg SL UD PRN PRN Reason: Chest Pain Stop: 03/27/21 23:04 Ondansetron HCl (Ondansetron Inj 2 Mg/Ml 2 Ml Vial) 4 mg IV Q6H PRN PRN Reason: Nausea Stop: 03/27/21 23:04 Sodium Chloride (Sodium Chloride 0.9% 10ml Flush) 30 ml IV DAILY@2100 [facility] Stop: 03/01/21 21:01 Last Admin: 02/27/21 03:36 Dose: 30 ml Documented by:
[2021-02-27] MEDS: FUROSEMIDE 40 MG in SYRINGE 0 ML IV SCH (17:17)
[2021-02-27] MEDS: HEPARIN SODIUM/DEXTROSE 25,000 UNITS/500 ML BAG IV SCH (18:54)
[2021-02-27] MEDS: guaiFENesin 600 MG TABCR PO SCH (20:43)
[2021-02-27] MEDS: REMDESIVIR 100 MG in SODIUM CHLORIDE 0.9% 230 ML IV SCH (20:43)
[2021-02-28] MEDS: HEPARIN SODIUM/DEXTROSE 25,000 UNITS/500 ML BAG IV SCH ×2 (07:14→13:11)
[2021-02-28 07:43] LABS: Basophils # (auto) 0.01 K/uL (0-0.2); Basophils % (auto) 0.1 %; Eosinophils # (auto) 0.03 K/uL (0-0.5); Eosinophils % (auto) 0.4 %; Hematocrit (blood only) 41.8 % (37-47); Immature Granulocytes # (auto) 0.07 K/uL (0.00-0.02); Immature Granulocytes % (auto) 0.9 %; Lymphocytes # (auto) 2.05 K/uL (1.2-3.4); Lymphocytes % (auto) 26.6 %; Mean Corpuscular Hemoglobin 28.1 pg (25-34); Mean Corpuscular Hgb Conc 33.5 g/dL (32-36); Mean Corpuscular Volume 83.9 fL (80-100); Mean Platelet Volume 11.2 fL (7.4-10.4); Monocytes # (auto) 0.79 K/uL (0.11-0.59); Monocytes % (auto) 10.2 %; Neutrophils # (auto) 4.76 K/uL (1.4-6.5); Neutrophils % (auto) 61.8 %; Platelet Count 219 K/uL (130-400); RDW Coefficient of Variation 12.1 % (11.5-14.5); Red Blood Count 4.98 M/uL (4.2-5.4); White Blood Count 7.71 K/uL (4.8-10.8)
[2021-02-28 08:02] LABS: BUN Creatinine Ratio 30.2 (10-20); Calcium 8.9 mg/dl (8.5-10.1); Creatinine Clr Calc Pharmacy 167.7 ml/min; Est GFR (Non-African American) 115.6 ml/min; Partial Thromboplastin Ratio 2.6; Potassium 3.5 mmol/L (3.5-5.1)
[2021-02-28 08:10] LABS: Partial Thromboplastin Time 68.2 Seconds (21.0-31.0)
[2021-02-28] MEDS: FUROSEMIDE 40 MG in SYRINGE 0 ML IV SCH (08:11)
[2021-02-28] MEDS: dexAMETHasone 6 MG in SYRINGE 0 ML IV SCH (08:11)
[2021-02-28] MEDS: guaiFENesin 600 MG TABCR PO SCH ×2 (08:11→21:01)
[2021-02-28] MEDS: INSULIN GLARGINE SOLOSTAR 100 UNITS/ML 3 ML PEN SC SCH ×2 (08:22→21:19)
[2021-02-28] MEDS: INSULIN ASPART 100 UNITS/ML 3 ML PEN SC SCH ×4 (08:22→21:18)
[2021-02-28 11:24] LABS: iSTAT Creatinine 0.9 mg/dl (0.6-1.3); iSTAT Hemoglobin 14.6 g/dl (12.0-16.0); iSTAT Ionized Calcium 1.17 mmol/l (1.12-1.32); iSTAT Potassium 3.8 mmol/L (3.3-5.0)
--- NOTE | 2021-02-28 17:47 | Hospitalist Progress Note ---
Date of Service February 28, 2021 Assessment & Plan (1) Acute hypoxemic respiratory failure: Plan: Secondary to COVID-19 pneumonia and pulmonary embolism She feels a little better but is still requiring more oxygen up to 6 L/min to maintain saturation Condition is better and requiring 2 L of oxygen to maintain saturation (2) COVID-19: Plan: Family members has had Covid but without symptoms She has diagnosed with Covid during this admission (3) Multifocal pneumonia: Plan: Secondary to COVID-19 pneumonia Has been getting remdesivir and dexamethasone Requiring 2 L of oxygen to maintain saturation We will continue current treatment Has been complaining of cough and congestion Inflammatory markers are improving We will try small dose of Lasix and continue with cough suppressant We will continue current management and she is clinically better (4) Pulmonary embolism, bilateral: Plan: Noted to have bilateral pulmonary embolism Has been getting intravenous heparin Maintenance therapy will be discussed on improvement We will discuss about Coumadin and or DOAC from tomorrow We will discuss about continued anticoagulation with the significant other/family members (5) Hyperglycemia: Plan: May have diabetes We will check hemoglobin [id number] at 9.2 Will need antidiabetic medication on discharge Increase Lantus to 10 mg twice daily and continue with SSI Plan: DVT prophylaxis IV heparin Admission and Anticipated Discharge Date Admission Date: February 25, 2021 Subjective 02/26/2021 The patient seen and examined in telemetry unit and in Covid room She has been feeling a little better since admission Has cough and is requiring 2 L of oxygen to maintain saturation 02/27/2021 The patient was seen and examined in telemetry unit and in Covid room She has been feeling better but still requiring 6 L of oxygen to maintain saturation Complains to have some cough and minimal shortness of breath 02/28/2021 The patient was seen and examined in telemetry unit and in Covid room She has been feeling much better today Cough is diminished and denies any shortness of breath at rest She has been requiring 2 L of oxygen via nasal cannula to maintain saturation Review of Systems Review of Systems: All systems reviewed and are unremarkable except as noted below Respiratory: + cough, + chest congestion and + dyspnea Physical Exam Physical Exam: Sitting at the edge of the bed with shortness of breath Constitutional: well developed, well nourished, + ill appearing and + obese Eyes: PERRL, conjunctivae normal, anicteric sclerae ENMT: external ear and nose normal, oropharynx normal Neck: trachea midline, no thyromegaly Respiratory: + respiratory distress, + labored breathing and + uses accessory muscles Auscultation: + diminished lung sounds and + crackles (Bibasilar crackles) Cardiovascular: Rate/Rhythm: regular rate and regular rhythm; not tachycardic Heart Sounds: normal S1 and normal S2; no murmur Gastrointestinal (Abdomen): normal bowel sounds, soft, nontender, no hepatosplenomegaly Musculoskeletal: No acute arthritis in any joint Neurologic: Alert, awake and oriented x3. No focal sensory and motor deficit appreciated Lymphatic: no cervical or axillary lymphadenopathy Results & Data Results & Data ([facility]) Vital Signs (Past 12 Hours) Vital Signs Temp Pulse Pulse Resp BP Pulse Ox 02/28/21 16:00 57 L 02/28/21 15:31 36.5 C 55 L 18 134/84 96 02/28/21 11:29 36.6 C 64 17 121/65 95 02/28/21 08:00 64 02/28/21 07:36 36.5 C 59 L 17 131/77 98 Laboratory Results Short CBC 02/28/21 Range/Units 07:17 WBC 7.71 (4.8-10.8) K/uL Hgb 14.0 (12.0-16.0) g/dL Hct 41.8 (37-47) % Plt Count 219 (130-400) K/uL BMP 02/28/21 07:17 Sodium 138 Potassium 3.5 Chloride 102 Carbon Dioxide 29 BUN 16 Creatinine 0.54 L Glucose 186 H Calcium 8.9 Liver Function 02/28/21 Range/Units 07:17 AST 22 (15-37) U/L ALT 43 (12-78) U/L Medications Administered Current Inpatient Medications Acetaminophen (Acetaminophen 325 Mg Tab) 650 mg PO Q4H PRN PRN Reason: Pain or Fever Stop: 03/27/21 23:04 Dextrose (Dextrose 50% 50 Ml Syringe) 25 - 50 ml IV UD PRN; Protocol PRN Reason: Hypoglycemia Protocol Stop: 03/28/21 11:44 Glucagon (Glucagon For Inj 1 Mg Vial) 1 mg IM UD PRN; Protocol PRN Reason: Hypoglycemia Protocol Stop: 03/28/21 11:44 Glucose (Glucose 40% Gel 15 Gm Tube) 15 - 30 gm PO UD PRN; Protocol PRN Reason: Hypoglycemia Protocol Stop: 03/28/21 11:44 Glucose (Glucose 10 Tabs/Tube) 4 - 8 tabs PO UD PRN; Protocol PRN Reason: Hypoglycemia Protocol Stop: 03/28/21 11:44 Guaifenesin (Guaifenesin 600 Mg Tabcr) 1,200 mg PO Q12 [facility] Stop: 03/29/21 20:59 Last Admin: 02/28/21 08:11 Dose: 1,200 mg Documented by: Heparin Sodium/Dextrose (Heparin Sodium/Dextrose) 25,000 units in 500 mls @ 31 mls/hr IV .[id number] [facility]; Protocol Stop: 03/27/21 18:44 Last Admin: 02/28/21 13:11 Dose: 1,550 units/hr, 31 mls/hr Documented by: Remdesivir 100 mg/ Sodium (Chloride) 250 mls @ 250 mls/hr IV Q24H [facility]; Protocol Stop: 03/01/21 20:59 Last Infusion: 02/27/21 21:30 Dose: 0 mls/hr Documented by: Dexamethasone 6 mg/ Syringe 1.5 mls @ 1 mls/min IV DAILY [facility] Stop: 03/08/21 11:59 Last Admin: 02/28/21 08:11 Dose: 1 mls/min Documented by: Furosemide 40 mg/ Syringe 4 mls @ 4 mls/min IV DAILY [facility] Stop: 03/29/21 16:44 Last Admin: 02/28/21 08:11 Dose: 4 mls/min Documented by: Insulin Aspart (Insulin Aspart 100 Units/Ml 3 Ml Pen) 0 units SC ACHS [facility] Stop: 03/27/21 23:29 Last Admin: 02/28/21 16:45 Dose: 11 units Documented by: Insulin Glargine (Insulin Glargine Solostar 100 Units/Ml 3 Ml Pen) 10 units SC BID [facility] Stop: 03/30/21 20:59 Miscellaneous (Carbohydrates For Hypoglycemia ) 15 - 30 gm PO UD PRN PRN Reason: Hypoglycemia Treatment Stop: 03/28/21 11:44 Nitroglycerin (Nitroglycerin Sl 0.4 Mg/Tab Tab) 0.4 mg SL UD PRN PRN Reason: Chest Pain Stop: 03/27/21 23:04 Ondansetron HCl (Ondansetron Inj 2 Mg/Ml 2 Ml Vial) 4 mg IV Q6H PRN PRN Reason: Nausea Stop: 03/27/21 23:04 Sodium Chloride (Sodium Chloride 0.9% 10ml Flush) 30 ml IV DAILY@2100 [facility] Stop: 03/01/21 21:01 Last Admin: 02/27/21 22:24 Dose: 30 ml Documented by:
[2021-02-28 18:00] LABS: Partial Thromboplastin Ratio 2.1
[2021-02-28 18:16] LABS: Partial Thromboplastin Time 56.1 Seconds (21.0-31.0)
[2021-02-28] MEDS: REMDESIVIR 100 MG in SODIUM CHLORIDE 0.9% 230 ML IV SCH (20:58)
[2021-02-28] MEDS: SODIUM CHLORIDE 0.9% 10ML FLUSH IV SCH (21:55)
[2021-03-01] MEDS: HEPARIN SODIUM/DEXTROSE 25,000 UNITS/500 ML BAG IV SCH (03:35)
[2021-03-01 07:16] LABS: Basophils # (auto) 0.01 K/uL (0-0.2); Basophils % (auto) 0.1 %; Eosinophils # (auto) 0.05 K/uL (0-0.5); Eosinophils % (auto) 0.6 %; Hematocrit (blood only) 41.2 % (37-47); Hemoglobin 13.8 g/dL (12.0-16.0); Immature Granulocytes % (auto) 1.2 %; Lymphocytes # (auto) 2.06 K/uL (1.2-3.4); Lymphocytes % (auto) 24.4 %; Mean Corpuscular Hemoglobin 28.1 pg (25-34); Mean Corpuscular Hgb Conc 33.5 g/dL (32-36); Mean Corpuscular Volume 83.9 fL (80-100); Monocytes # (auto) 0.83 K/uL (0.11-0.59); Monocytes % (auto) 9.8 %; Neutrophils % (auto) 63.9 %; Platelet Count 240 K/uL (130-400); RDW Coefficient of Variation 12.1 % (11.5-14.5); RDW Standard Deviation 36.9 fL (36.4-46.3); Red Blood Count 4.91 M/uL (4.2-5.4); White Blood Count 8.45 K/uL (4.8-10.8)
[2021-03-01 07:37] LABS: Partial Thromboplastin Ratio 2.5
[2021-03-01 07:41] LABS: Partial Thromboplastin Time 65.3 Seconds (21.0-31.0)
[2021-03-01 08:04] LABS: BUN Creatinine Ratio 32.7 (10-20); Calcium 8.6 mg/dl (8.5-10.1); Creatinine Clr Calc Pharmacy 212.9 ml/min; Est GFR (African American) 145.5 ml/min; Est GFR (Non-African American) 125.5 ml/min; Potassium 3.5 mmol/L (3.5-5.1)
--- NOTE | 2021-03-01 08:27 | Hospitalist Progress Note ---
Date of Service March 01, 2021 Assessment & Plan (1) Acute hypoxemic respiratory failure: Plan: Secondary to COVID-19 pneumonia and pulmonary embolism She feels a little better but is still requiring more oxygen up to 6 L/min to maintain saturation Condition is better and requiring 2 L of oxygen to maintain saturation Clinically improved but still requiring 2 L of oxygen (2) COVID-19: Plan: Family members has had Covid but without symptoms She has diagnosed with Covid during this admission (3) Multifocal pneumonia: Plan: Secondary to COVID-19 pneumonia Has been getting remdesivir and dexamethasone Requiring 2 L of oxygen to maintain saturation We will continue current treatment Has been complaining of cough and congestion Inflammatory markers are improving We will try small dose of Lasix and continue with cough suppressant We will continue current management and she is clinically better Remdesivir will be finished by tomorrow (4) Pulmonary embolism, bilateral: Plan: Acute Bilateral Pulmonary Embolism Has been getting intravenous heparin Maintenance therapy will be discussed on improvement We will discuss about Coumadin and or DOAC from tomorrow We will discuss about continued anticoagulation with the significant other/family members We will plan to put her on oral anticoagulants from tomorrow (5) Hyperglycemia: Plan: May have diabetes We will check hemoglobin [id number] at 9.2 Will need antidiabetic medication on discharge Increase Lantus to 10 mg twice daily and continue with SSI Plan: DVT prophylaxis IV heparin Admission and Anticipated Discharge Date Admission Date: February 25, 2021 Subjective 02/26/2021 The patient seen and examined in telemetry unit and in Covid room She has been feeling a little better since admission Has cough and is requiring 2 L of oxygen to maintain saturation 02/27/2021 The patient was seen and examined in telemetry unit and in Covid room She has been feeling better but still requiring 6 L of oxygen to maintain saturation Complains to have some cough and minimal shortness of breath 02/28/2021 The patient was seen and examined in telemetry unit and in Covid room She has been feeling much better today Cough is diminished and denies any shortness of breath at rest She has been requiring 2 L of oxygen via nasal cannula to maintain saturation 03/01/2021 The patient was seen and examined in telemetry unit and Covid room She has been feeling much better and she is out of bed on a chair Decreasing cough and decreasing shortness of breath Still requiring 2 L to maintain saturation Review of Systems Review of Systems: All systems reviewed and are unremarkable except as noted below Respiratory: + cough, + chest congestion and + dyspnea Physical Exam Physical Exam: Sitting at the edge of the bed with shortness of breath Constitutional: well developed, well nourished, + ill appearing and + obese Eyes: PERRL, conjunctivae normal, anicteric sclerae ENMT: external ear and nose normal, oropharynx normal Neck: trachea midline, no thyromegaly Respiratory: + respiratory distress, + labored breathing and + uses accessory muscles Auscultation: + diminished lung sounds and + crackles (Bibasilar crackles) Cardiovascular: Rate/Rhythm: regular rate and regular rhythm; not tachycardic Heart Sounds: normal S1 and normal S2; no murmur Gastrointestinal (Abdomen): normal bowel sounds, soft, nontender, no hepatosplenomegaly Musculoskeletal: No acute arthritis in any joint Neurologic: Alert, awake and oriented x3. No focal sensory and motor deficit appreciated Lymphatic: no cervical or axillary lymphadenopathy Results & Data Results & Data ([facility]) Vital Signs (Past 12 Hours) Vital Signs Temp Pulse Pulse Resp BP Pulse Ox 03/01/21 07:55 36.6 C 56 L 22 140/84 96 03/01/21 03:42 36.6 C 50 L 24 136/90 96 03/01/21 00:35 51 L 02/28/21 22:57 36.6 C 53 L 16 132/78 95 Laboratory Results Short CBC 03/01/21 Range/Units 07:04 WBC 8.45 (4.8-10.8) K/uL Hgb 13.8 (12.0-16.0) g/dL Hct 41.2 (37-47) % Plt Count 240 (130-400) K/uL BMP 03/01/21 07:04 Sodium 134 L Potassium 3.5 Chloride 103 Carbon Dioxide 28 BUN 14 Creatinine 0.42 L Glucose 189 H Calcium 8.6 Liver Function 03/01/21 Range/Units 07:04 AST 16 (15-37) U/L ALT 41 (12-78) U/L Medications Administered Current Inpatient Medications Acetaminophen (Acetaminophen 325 Mg Tab) 650 mg PO Q4H PRN PRN Reason: Pain or Fever Stop: 03/27/21 23:04 Dextrose (Dextrose 50% 50 Ml Syringe) 25 - 50 ml IV UD PRN; Protocol PRN Reason: Hypoglycemia Protocol Stop: 03/28/21 11:44 Glucagon (Glucagon For Inj 1 Mg Vial) 1 mg IM UD PRN; Protocol PRN Reason: Hypoglycemia Protocol Stop: 03/28/21 11:44 Glucose (Glucose 40% Gel 15 Gm Tube) 15 - 30 gm PO UD PRN; Protocol PRN Reason: Hypoglycemia Protocol Stop: 03/28/21 11:44 Glucose (Glucose 10 Tabs/Tube) 4 - 8 tabs PO UD PRN; Protocol PRN Reason: Hypoglycemia Protocol Stop: 03/28/21 11:44 Guaifenesin (Guaifenesin 600 Mg Tabcr) 1,200 mg PO Q12 [facility] Stop: 03/29/21 20:59 Last Admin: 03/01/21 09:07 Dose: 1,200 mg Documented by: Heparin Sodium/Dextrose (Heparin Sodium/Dextrose) 25,000 units in 500 mls @ 31 mls/hr IV .[id number] [facility]; Protocol Stop: 03/27/21 18:44 Last Titration: 03/01/21 07:49 Dose: 1,550 units/hr, 31 mls/hr Documented by: Remdesivir 100 mg/ Sodium (Chloride) 250 mls @ 250 mls/hr IV Q24H [facility]; Protocol Stop: 03/01/21 20:59 Last Infusion: 02/28/21 21:59 Dose: Infused Documented by: Dexamethasone 6 mg/ Syringe 1.5 mls @ 1 mls/min IV DAILY [facility] Stop: 03/08/21 11:59 Last Admin: 03/01/21 09:06 Dose: 1 mls/min Documented by: Furosemide 40 mg/ Syringe 4 mls @ 4 mls/min IV DAILY [facility] Stop: 03/29/21 16:44 Last Admin: 03/01/21 09:07 Dose: 4 mls/min Documented by: Insulin Aspart (Insulin Aspart 100 Units/Ml 3 Ml Pen) 0 units SC ACHS [facility] Stop: 03/27/21 23:29 Last Admin: 03/01/21 13:10 Dose: 7 units Documented by: Insulin Glargine (Insulin Glargine Solostar 100 Units/Ml 3 Ml Pen) 10 units SC BID [facility] Stop: 03/30/21 20:59 Last Admin: 03/01/21 10:12 Dose: 10 units Documented by: Miscellaneous (Carbohydrates For Hypoglycemia ) 15 - 30 gm PO UD PRN PRN Reason: Hypoglycemia Treatment Stop: 03/28/21 11:44 Nitroglycerin (Nitroglycerin Sl 0.4 Mg/Tab Tab) 0.4 mg SL UD PRN PRN Reason: Chest Pain Stop: 03/27/21 23:04 Ondansetron HCl (Ondansetron Inj 2 Mg/Ml 2 Ml Vial) 4 mg IV Q6H PRN PRN Reason: Nausea Stop: 03/27/21 23:04 Sodium Chloride (Sodium Chloride 0.9% 10ml Flush) 30 ml IV DAILY@2100 [facility] Stop: 03/01/21 21:01 Last Admin: 02/28/21 21:55 Dose: 30 ml Documented by:
[2021-03-01] MEDS: INSULIN ASPART 100 UNITS/ML 3 ML PEN SC SCH ×4 (09:00→21:01)
[2021-03-01] MEDS: dexAMETHasone 6 MG in SYRINGE 0 ML IV SCH (09:06)
[2021-03-01] MEDS: guaiFENesin 600 MG TABCR PO SCH ×2 (09:07→21:01)
[2021-03-01] MEDS: FUROSEMIDE 40 MG in SYRINGE 0 ML IV SCH (09:07)
[2021-03-01] MEDS: INSULIN GLARGINE SOLOSTAR 100 UNITS/ML 3 ML PEN SC SCH ×2 (10:12→21:03)
[2021-03-01] MEDS: REMDESIVIR 100 MG in SODIUM CHLORIDE 0.9% 230 ML IV SCH (21:00)
[2021-03-01] MEDS: SODIUM CHLORIDE 0.9% 10ML FLUSH IV SCH (21:00)
[2021-03-02] MEDS: HEPARIN SODIUM/DEXTROSE 25,000 UNITS/500 ML BAG IV SCH ×2 (00:48→19:04)
[2021-03-02 06:05] LABS: Basophils # (auto) 0.02 K/uL (0-0.2); Basophils % (auto) 0.2 %; Eosinophils # (auto) 0.05 K/uL (0-0.5); Eosinophils % (auto) 0.6 %; Hematocrit (blood only) 43.3 % (37-47); Hemoglobin 14.4 g/dL (12.0-16.0); Immature Granulocytes # (auto) 0.12 K/uL (0.00-0.02); Immature Granulocytes % (auto) 1.4 %; Lymphocytes # (auto) 2.03 K/uL (1.2-3.4); Mean Corpuscular Hemoglobin 27.9 pg (25-34); Mean Corpuscular Hgb Conc 33.3 g/dL (32-36); Mean Corpuscular Volume 83.9 fL (80-100); Mean Platelet Volume 10.8 fL (7.4-10.4); Monocytes # (auto) 0.73 K/uL (0.11-0.59); Monocytes % (auto) 8.3 %; Neutrophils # (auto) 5.88 K/uL (1.4-6.5); Neutrophils % (auto) 66.5 %; Platelet Count 256 K/uL (130-400); RDW Coefficient of Variation 12.1 % (11.5-14.5); RDW Standard Deviation 36.9 fL (36.4-46.3); Red Blood Count 5.16 M/uL (4.2-5.4); White Blood Count 8.83 K/uL (4.8-10.8)
[2021-03-02 06:36] LABS: Partial Thromboplastin Ratio 2.1
[2021-03-02 06:41] LABS: BUN Creatinine Ratio 27.9 (10-20); C Reactive Protein 1.01 mg/dl (0-0.29); Calcium 8.8 mg/dl (8.5-10.1); Creatinine Clr Calc Pharmacy 186.9 ml/min; Est GFR (African American) 139.2 ml/min; Est GFR (Non-African American) 120.1 ml/min
[2021-03-02 06:51] LABS: Partial Thromboplastin Time 56.2 Seconds (21.0-31.0)
[2021-03-02] MEDS: INSULIN GLARGINE SOLOSTAR 100 UNITS/ML 3 ML PEN SC SCH ×2 (09:00→22:22)
[2021-03-02] MEDS: dexAMETHasone 6 MG in SYRINGE 0 ML IV SCH (09:50)
[2021-03-02] MEDS: FUROSEMIDE 40 MG in SYRINGE 0 ML IV SCH (09:51)
[2021-03-02] MEDS: guaiFENesin 600 MG TABCR PO SCH ×2 (09:51→21:22)
[2021-03-02] MEDS: INSULIN ASPART 100 UNITS/ML 3 ML PEN SC SCH ×4 (10:59→22:22)
--- NOTE | 2021-03-02 17:04 | Hospitalist Progress Note ---
Date of Service March 02, 2021 Assessment & Plan (1) Acute hypoxemic respiratory failure: Plan: Secondary to COVID-19 pneumonia and pulmonary embolism She feels a little better but is still requiring more oxygen up to 6 L/min to maintain saturation Condition is better and requiring 2 L of oxygen to maintain saturation Clinically improved but still requiring 2 L of oxygen She has been ambulating in the room and occasionally requiring oxygen to maintain saturation Symptomatically much better (2) COVID-19: Plan: Family members has had Covid but without symptoms She has diagnosed with Covid during this admission (3) Multifocal pneumonia: Plan: Secondary to COVID-19 pneumonia Has been getting remdesivir and dexamethasone Requiring 2 L of oxygen to maintain saturation We will continue current treatment Has been complaining of cough and congestion Inflammatory markers are improving We will try small dose of Lasix and continue with cough suppressant We will continue current management and she is clinically better Finish the course of remdesivir and will continue with dexamethasone Likely be discharged tomorrow (4) Pulmonary embolism, bilateral: Plan: Acute Bilateral Pulmonary Embolism Has been getting intravenous heparin Maintenance therapy will be discussed on improvement We will discuss about Coumadin and or DOAC from tomorrow We will discuss about continued anticoagulation with the significant other/family members Heparin is a stopped and Eliquis 10 mg twice daily has been started (5) Hyperglycemia: Plan: May have diabetes We will check hemoglobin [id number] at 9.2 Will need antidiabetic medication on discharge Increase Lantus to 10 mg twice daily and continue with SSI Plan: DVT prophylaxis IV heparin Admission and Anticipated Discharge Date Admission Date: February 25, 2021 Subjective 02/26/2021 The patient seen and examined in telemetry unit and in Covid room She has been feeling a little better since admission Has cough and is requiring 2 L of oxygen to maintain saturation 02/27/2021 The patient was seen and examined in telemetry unit and in Covid room She has been feeling better but still requiring 6 L of oxygen to maintain saturation Complains to have some cough and minimal shortness of breath 02/28/2021 The patient was seen and examined in telemetry unit and in Covid room She has been feeling much better today Cough is diminished and denies any shortness of breath at rest She has been requiring 2 L of oxygen via nasal cannula to maintain saturation 03/01/2021 The patient was seen and examined in telemetry unit and Covid room She has been feeling much better and she is out of bed on a chair Decreasing cough and decreasing shortness of breath Still requiring 2 L to maintain saturation 03/02/2021 The patient was seen and examined in telemetry unit and in the Covin room She has been feeling much better, has minimal cough and minimal shortness of breath at rest Denies any other symptoms Review of Systems Review of Systems: All systems reviewed and are unremarkable except as noted below Respiratory: + cough, + chest congestion and + dyspnea Physical Exam Physical Exam: Sitting at the edge of the bed with shortness of breath Constitutional: well developed, well nourished, + ill appearing and + obese Eyes: PERRL, conjunctivae normal, anicteric sclerae ENMT: external ear and nose normal, oropharynx normal Neck: trachea midline, no thyromegaly Respiratory: + respiratory distress, + labored breathing and + uses accessory muscles Auscultation: + diminished lung sounds and + crackles (Bibasilar crackles) Cardiovascular: Rate/Rhythm: regular rate and regular rhythm; not tachycardic Heart Sounds: normal S1 and normal S2; no murmur Gastrointestinal (Abdomen): normal bowel sounds, soft, nontender, no hepatosplenomegaly Musculoskeletal: No acute arthritis in any joint Neurologic: Alert, awake and oriented x3 Lymphatic: no cervical or axillary lymphadenopathy Results & Data Results & Data ([facility]) Vital Signs (Past 12 Hours) Vital Signs Temp Pulse Pulse Resp BP Pulse Ox 03/02/21 16:00 60 03/02/21 11:00 37.0 C 88 18 129/65 99 03/02/21 08:00 37.0 C 49 L 97 H 16 117/73 99 Laboratory Results Short CBC 03/02/21 Range/Units 05:43 WBC 8.83 (4.8-10.8) K/uL Hgb 14.4 (12.0-16.0) g/dL Hct 43.3 (37-47) % Plt Count 256 (130-400) K/uL BMP 03/02/21 05:43 Sodium 132 L Potassium 4.0 Chloride 102 Carbon Dioxide 30 BUN 13 Creatinine 0.48 L Glucose 203 H Calcium 8.8 Liver Function 03/02/21 Range/Units 05:43 AST 25 (15-37) U/L ALT 56 (12-78) U/L Medications Administered Current Inpatient Medications Acetaminophen (Acetaminophen 325 Mg Tab) 650 mg PO Q4H PRN PRN Reason: Pain or Fever Stop: 03/27/21 23:04 Apixaban (Apixaban 5 Mg Tablet) 10 mg PO BID [facility] Stop: 03/09/21 09:01 Dextrose (Dextrose 50% 50 Ml Syringe) 25 - 50 ml IV UD PRN; Protocol PRN Reason: Hypoglycemia Protocol Stop: 03/28/21 11:44 Glucagon (Glucagon For Inj 1 Mg Vial) 1 mg IM UD PRN; Protocol PRN Reason: Hypoglycemia Protocol Stop: 03/28/21 11:44 Glucose (Glucose 40% Gel 15 Gm Tube) 15 - 30 gm PO UD PRN; Protocol PRN Reason: Hypoglycemia Protocol Stop: 03/28/21 11:44 Glucose (Glucose 10 Tabs/Tube) 4 - 8 tabs PO UD PRN; Protocol PRN Reason: Hypoglycemia Protocol Stop: 03/28/21 11:44 Guaifenesin (Guaifenesin 600 Mg Tabcr) 1,200 mg PO Q12 [facility] Stop: 03/29/21 20:59 Last Admin: 03/02/21 09:51 Dose: 1,200 mg Documented by: Heparin Sodium/Dextrose (Heparin Sodium/Dextrose) 25,000 units in 500 mls @ 31 mls/hr IV .[id number] [facility]; Protocol Stop: 03/02/21 21:00 Last Titration: 03/02/21 16:00 Dose: 1,550 units/hr, 31 mls/hr Documented by: Dexamethasone 6 mg/ Syringe 1.5 mls @ 1 mls/min IV DAILY [facility] Stop: 03/08/21 11:59 Last Admin: 03/02/21 09:50 Dose: 1 mls/min Documented by: Furosemide 40 mg/ Syringe 4 mls @ 4 mls/min IV DAILY [facility] Stop: 03/29/21 16:44 Last Admin: 03/02/21 09:51 Dose: 4 mls/min Documented by: Insulin Aspart (Insulin Aspart 100 Units/Ml 3 Ml Pen) 0 units SC ACHS [facility] Stop: 03/27/21 23:29 Last Admin: 03/02/21 12:42 Dose: Not Given Documented by: Insulin Glargine (Insulin Glargine Solostar 100 Units/Ml 3 Ml Pen) 10 units SC BID [facility] Stop: 03/30/21 20:59 Last Admin: 03/02/21 09:00 Dose: 10 units Documented by: Miscellaneous (Carbohydrates For Hypoglycemia ) 15 - 30 gm PO UD PRN PRN Reason: Hypoglycemia Treatment Stop: 03/28/21 11:44 Miscellaneous (Stop Heparin) 1 ea N/A ONE ONE Stop: 03/02/21 21:01 Nitroglycerin (Nitroglycerin Sl 0.4 Mg/Tab Tab) 0.4 mg SL UD PRN PRN Reason: Chest Pain Stop: 03/27/21 23:04 Ondansetron HCl (Ondansetron Inj 2 Mg/Ml 2 Ml Vial) 4 mg IV Q6H PRN PRN Reason: Nausea Stop: 03/27/21 23:04
[2021-03-02] MEDS ORDERED: STOP HEPARIN ONE (21:00)
[2021-03-02] MEDS: APIXABAN 5 MG TABLET PO SCH (21:22)
[2021-03-03 06:44] LABS: Basophils # (auto) 0.01 K/uL (0-0.2); Basophils % (auto) 0.1 %; Eosinophils # (auto) 0.05 K/uL (0-0.5); Eosinophils % (auto) 0.5 %; Hematocrit (blood only) 42.7 % (37-47); Hemoglobin 14.2 g/dL (12.0-16.0); Immature Granulocytes # (auto) 0.13 K/uL (0.00-0.02); Immature Granulocytes % (auto) 1.2 %; Lymphocytes # (auto) 1.94 K/uL (1.2-3.4); Lymphocytes % (auto) 17.8 %; Mean Corpuscular Hemoglobin 28.1 pg (25-34); Mean Corpuscular Hgb Conc 33.3 g/dL (32-36); Mean Corpuscular Volume 84.4 fL (80-100); Mean Platelet Volume 10.9 fL (7.4-10.4); Monocytes # (auto) 0.81 K/uL (0.11-0.59); Monocytes % (auto) 7.4 %; Neutrophils # (auto) 7.98 K/uL (1.4-6.5); Platelet Count 287 K/uL (130-400); RDW Coefficient of Variation 12.3 % (11.5-14.5); RDW Standard Deviation 37.2 fL (36.4-46.3); Red Blood Count 5.06 M/uL (4.2-5.4); White Blood Count 10.92 K/uL (4.8-10.8)
[2021-03-03 07:05] LABS: BUN Creatinine Ratio 38.7 (10-20); Calcium 9.2 mg/dl (8.5-10.1); Creatinine Clr Calc Pharmacy 203.3 ml/min; Est GFR (African American) 143.3 ml/min; Est GFR (Non-African American) 123.6 ml/min; Magnesium 1.5 mg/dl (1.8-2.4); Phosphorus 4.7 mg/dl (2.5-4.9); Potassium 4.1 mmol/L (3.5-5.1)
[2021-03-03] MEDS: FUROSEMIDE 40 MG in SYRINGE 0 ML IV SCH (08:11)
[2021-03-03] MEDS: dexAMETHasone 6 MG in SYRINGE 0 ML IV SCH (08:11)
[2021-03-03] MEDS: APIXABAN 5 MG TABLET PO SCH ×2 (08:11→20:30)
[2021-03-03] MEDS: guaiFENesin 600 MG TABCR PO SCH ×2 (08:12→20:30)
[2021-03-03] MEDS: INSULIN ASPART 100 UNITS/ML 3 ML PEN SC SCH ×4 (08:12→22:51)
[2021-03-03] MEDS: INSULIN GLARGINE SOLOSTAR 100 UNITS/ML 3 ML PEN SC SCH ×2 (08:37→21:00)
--- NOTE | 2021-03-03 14:34 | XRay Report ---
XR chest 1V portable CLINICAL HISTORY: Covid 19 pneumonia COMPARISON STUDY: No previous studies for comparison. FINDINGS: No definite pneumothorax is seen. However evaluation is limited because left lung apex is partially o bscured by patient's chin.. No pleural effusion. Lung volumes are decreased with crowded lung markings. Prominent asymmetrical reticular opacities are seen within left mid and lower lung which might repres ent scattered atelectasis or infiltrates. Few small opacities are seen at the right lower lung. Cardiomediastinal silhouette is within normal limits in size. No significant pulmonary vascular congestion.. Osseous structures: unremarkable IMPRESSION: 1. Questionable asymmetrical reticular opacities within left mid to lower lung might represent scatt ered atelectasis or infiltrates. Limited exam due to low lung volumes. ACT 112: Negative or not required by law. The above report was generated using voice recognition software. It may contain grammatical, syntax o r spelling errors. Electronically signed by: Tamiko Davis DO 03/03/2021 2:32 PM
--- NOTE | 2021-03-03 15:04 | Hospitalist Progress Note ---
Date of Service March 03, 2021 Assessment & Plan (1) Acute hypoxemic respiratory failure: Plan: Secondary to COVID-19 pneumonia and pulmonary embolism She feels a little better but is still requiring more oxygen up to 6 L/min to maintain saturation Condition is better and requiring 2 L of oxygen to maintain saturation Clinically improved but still requiring 2 L of oxygen She has been ambulating in the room and occasionally requiring oxygen to maintain saturation Symptomatically much better Saturating normally on room air at rest She was advised to move around in the room as she is getting very short of breath with minimal exertion (2) COVID-19: Plan: Family members has had Covid but without symptoms She has diagnosed with Covid during this admission Chest x-ray did not show patchy atelectasis/infiltration in the left left lung White count is slightly elevated-we will check any pro calcitonin elevation tomorrow (3) Multifocal pneumonia: Plan: Secondary to COVID-19 pneumonia Has been getting remdesivir and dexamethasone Requiring 2 L of oxygen to maintain saturation We will continue current treatment Has been complaining of cough and congestion Inflammatory markers are improving We will try small dose of Lasix and continue with cough suppressant We will continue current management and she is clinically better Finish the course of remdesivir and will continue with dexamethasone Not yet ready to be discharged (4) Pulmonary embolism, bilateral: Plan: Acute Bilateral Pulmonary Embolism Has been getting intravenous heparin Maintenance therapy will be discussed on improvement We will discuss about Coumadin and or DOAC from tomorrow We will discuss about continued anticoagulation with the significant other/family members Heparin is a stopped and Eliquis 10 mg twice daily has been started (5) Hyperglycemia: Plan: May have diabetes We will check hemoglobin [id number] at 9.2 Will need antidiabetic medication on discharge Increase Lantus to 10 mg twice daily and continue with SSI Plan: DVT prophylaxis IV heparin Admission and Anticipated Discharge Date Admission Date: February 25, 2021 Subjective 02/26/2021 The patient seen and examined in telemetry unit and in Covid room She has been feeling a little better since admission Has cough and is requiring 2 L of oxygen to maintain saturation 02/27/2021 The patient was seen and examined in telemetry unit and in Covid room She has been feeling better but still requiring 6 L of oxygen to maintain saturation Complains to have some cough and minimal shortness of breath 02/28/2021 The patient was seen and examined in telemetry unit and in Covid room She has been feeling much better today Cough is diminished and denies any shortness of breath at rest She has been requiring 2 L of oxygen via nasal cannula to maintain saturation 03/01/2021 The patient was seen and examined in telemetry unit and Covid room She has been feeling much better and she is out of bed on a chair Decreasing cough and decreasing shortness of breath Still requiring 2 L to maintain saturation 03/02/2021 The patient was seen and examined in telemetry unit and in the Covid room She has been feeling much better, has minimal cough and minimal shortness of breath at rest Denies any other symptoms 03/03/2021 The patient was seen and examined in telemetry unit and in the Covid room She has been feeling better but gets shortness of breath and tachycardic with minimal exertion and the saturation drops She denies any other symptoms Review of Systems Review of Systems: All systems reviewed and are unremarkable except as noted below Respiratory: + cough, + chest congestion and + dyspnea Physical Exam Physical Exam: Sitting at the edge of the bed with shortness of breath Constitutional: well developed, well nourished, + ill appearing and + obese Eyes: PERRL, conjunctivae normal, anicteric sclerae ENMT: external ear and nose normal, oropharynx normal Neck: trachea midline, no thyromegaly Respiratory: + respiratory distress, + labored breathing and + uses accessory muscles Auscultation: + diminished lung sounds and + crackles (Minimal on the left side) Cardiovascular: Rate/Rhythm: regular rate and regular rhythm; not tachycardic Heart Sounds: normal S1 and normal S2; no murmur Gastrointestinal (Abdomen): normal bowel sounds, soft, nontender, no hepatosplenomegaly Musculoskeletal: No acute arthritis in any joint Neurologic: Alert, awake and oriented x3. No focal sensory and motor deficit appreciated Lymphatic: no cervical or axillary lymphadenopathy Results & Data Results & Data ([facility]) Vital Signs (Past 12 Hours) Vital Signs Temp Pulse Pulse Resp BP Pulse Ox 03/03/21 11:18 36.6 C 66 22 120/76 95 03/03/21 08:22 36.6 C 80 20 127/77 97 03/03/21 08:00 51 L 03/03/21 03:59 36.5 C 54 L 23 127/25 L 94 Laboratory Results Short CBC 03/03/21 Range/Units 06:11 WBC 10.92 H (4.8-10.8) K/uL Hgb 14.2 (12.0-16.0) g/dL Hct 42.7 (37-47) % Plt Count 287 (130-400) K/uL BMP 03/03/21 06:11 Sodium 135 L Potassium 4.1 Chloride 102 Carbon Dioxide 29 BUN 17 Creatinine 0.44 L Glucose 180 H Calcium 9.2 Medications Administered Current Inpatient Medications Acetaminophen (Acetaminophen 325 Mg Tab) 650 mg PO Q4H PRN PRN Reason: Pain or Fever Stop: 03/27/21 23:04 Apixaban (Apixaban 5 Mg Tablet) 10 mg PO BID [facility] Stop: 03/09/21 09:01 Last Admin: 03/03/21 08:11 Dose: 10 mg Documented by: Dextrose (Dextrose 50% 50 Ml Syringe) 25 - 50 ml IV UD PRN; Protocol PRN Reason: Hypoglycemia Protocol Stop: 03/28/21 11:44 Glucagon (Glucagon For Inj 1 Mg Vial) 1 mg IM UD PRN; Protocol PRN Reason: Hypoglycemia Protocol Stop: 03/28/21 11:44 Glucose (Glucose 40% Gel 15 Gm Tube) 15 - 30 gm PO UD PRN; Protocol PRN Reason: Hypoglycemia Protocol Stop: 03/28/21 11:44 Glucose (Glucose 10 Tabs/Tube) 4 - 8 tabs PO UD PRN; Protocol PRN Reason: Hypoglycemia Protocol Stop: 03/28/21 11:44 Guaifenesin (Guaifenesin 600 Mg Tabcr) 1,200 mg PO Q12 [facility] Stop: 03/29/21 20:59 Last Admin: 03/03/21 08:12 Dose: 1,200 mg Documented by: Dexamethasone 6 mg/ Syringe 1.5 mls @ 1 mls/min IV DAILY [facility] Stop: 03/08/21 11:59 Last Admin: 03/03/21 08:11 Dose: 1 mls/min Documented by: Insulin Aspart (Insulin Aspart 100 Units/Ml 3 Ml Pen) 0 units SC ACHS [facility] Stop: 03/27/21 23:29 Last Admin: 03/03/21 12:16 Dose: 20 units Documented by: Insulin Glargine (Insulin Glargine Solostar 100 Units/Ml 3 Ml Pen) 10 units SC BID [facility] Stop: 03/30/21 20:59 Last Admin: 03/03/21 08:37 Dose: 10 units Documented by: Magnesium Oxide (Magnesium Oxide 400 Mg Tab) 400 mg PO BID [facility] Stop: 04/02/21 20:59 Miscellaneous (Carbohydrates For Hypoglycemia ) 15 - 30 gm PO UD PRN PRN Reason: Hypoglycemia Treatment Stop: 03/28/21 11:44 Nitroglycerin (Nitroglycerin Sl 0.4 Mg/Tab Tab) 0.4 mg SL UD PRN PRN Reason: Chest Pain Stop: 03/27/21 23:04 Ondansetron HCl (Ondansetron Inj 2 Mg/Ml 2 Ml Vial) 4 mg IV Q6H PRN PRN Reason: Nausea Stop: 03/27/21 23:04
[2021-03-03] MEDS ORDERED: MAGNESIUM OXIDE 400 MG TAB PO STA (15:05)
[2021-03-03] MEDS: MAGNESIUM OXIDE 400 MG TAB PO SCH (20:30)
[2021-03-03] MEDS ORDERED: INSULIN GLARGINE SOLOSTAR 100 UNITS/ML 3 ML PEN SC STA ×2 (22:49)
[2021-03-03] MEDS ORDERED: SODIUM CHLORIDE 0.9% 1000ML 1,000 ML IV ONE (22:50)
[2021-03-04] MEDS ORDERED: dexAMETHasone 6 MG in SYRINGE 0 ML IV SCH (03:20)
[2021-03-04 07:49] LABS: Basophils # (auto) 0.01 K/uL (0-0.2); Basophils % (auto) 0.1 %; Eosinophils # (auto) 0.04 K/uL (0-0.5); Eosinophils % (auto) 0.3 %; Hematocrit (blood only) 43.1 % (37-47); Hemoglobin 14.4 g/dL (12.0-16.0); Immature Granulocytes # (auto) 0.15 K/uL (0.00-0.02); Lymphocytes # (auto) 1.43 K/uL (1.2-3.4); Lymphocytes % (auto) 9.4 %; Mean Corpuscular Hemoglobin 28.2 pg (25-34); Mean Corpuscular Hgb Conc 33.4 g/dL (32-36); Mean Corpuscular Volume 84.3 fL (80-100); Monocytes # (auto) 0.63 K/uL (0.11-0.59); Monocytes % (auto) 4.1 %; Neutrophils # (auto) 12.99 K/uL (1.4-6.5); Neutrophils % (auto) 85.1 %; Platelet Count 275 K/uL (130-400); RDW Coefficient of Variation 12.2 % (11.5-14.5); RDW Standard Deviation 37.3 fL (36.4-46.3); Red Blood Count 5.11 M/uL (4.2-5.4); White Blood Count 15.25 K/uL (4.8-10.8)
[2021-03-04 08:23] LABS: BUN Creatinine Ratio 42.6 (10-20); Calcium 8.9 mg/dl (8.5-10.1); Creatinine Clr Calc Pharmacy 217.5 ml/min; Est GFR (African American) 146.7 ml/min; Est GFR (Non-African American) 126.5 ml/min; Potassium 4.3 mmol/L (3.5-5.1)
[2021-03-04] MEDS: APIXABAN 5 MG TABLET PO SCH ×2 (08:56→21:35)
[2021-03-04] MEDS: guaiFENesin 600 MG TABCR PO SCH ×2 (08:57→21:35)
[2021-03-04] MEDS: MAGNESIUM OXIDE 400 MG TAB PO SCH ×2 (08:57→21:35)
[2021-03-04] MEDS ORDERED: INSULIN GLARGINE SOLOSTAR 100 UNITS/ML 3 ML PEN SC SCH (09:00)
[2021-03-04] MEDS: INSULIN ASPART 100 UNITS/ML 3 ML PEN SC SCH ×4 (09:00→21:40)
[2021-03-04] MEDS: INSULIN GLARGINE SOLOSTAR 100 UNITS/ML 3 ML PEN SC SCH ×2 (09:00→21:40)
--- NOTE | 2021-03-04 13:57 | Hospitalist Progress Note ---
Date of Service March 04, 2021 Assessment & Plan (1) Acute hypoxemic respiratory failure: Plan: Secondary to COVID-19 pneumonia and pulmonary embolism She feels a little better but is still requiring more oxygen up to 6 L/min to maintain saturation Condition is better and requiring 2 L of oxygen to maintain saturation Clinically improved but still requiring 2 L of oxygen She has been ambulating in the room and occasionally requiring oxygen to maintain saturation Symptomatically much better Saturating normally on room air at rest She was advised to move around in the room as she is getting very short of breath with minimal exertion Saturating normally on room air She passed that to 2 step saturation test and she will be discharged home this afternoon (2) COVID-19: Plan: Family members has had Covid but without symptoms She has diagnosed with Covid during this admission Chest x-ray did not show patchy atelectasis/infiltration in the left left lung White count is slightly elevated-we will check any pro calcitonin elevation tomorrow Remains generally weak and lethargic and will not go to work for at least 1 week (3) Multifocal pneumonia: Plan: Secondary to COVID-19 pneumonia Has been getting remdesivir and dexamethasone Requiring 2 L of oxygen to maintain saturation We will continue current treatment Has been complaining of cough and congestion Inflammatory markers are improving We will try small dose of Lasix and continue with cough suppressant We will continue current management and she is clinically better Finish the course of remdesivir and will continue with dexamethasone She is ready to be discharged (4) Pulmonary embolism, bilateral: Plan: Acute Bilateral Pulmonary Embolism Has been getting intravenous heparin Maintenance therapy will be discussed on improvement We will discuss about Coumadin and or DOAC from tomorrow We will discuss about continued anticoagulation with the significant other/family members Heparin is a stopped and Eliquis 10 mg twice daily has been started She will continue with Eliquis for at least 6 months (5) Hyperglycemia: Plan: May have diabetes We will check hemoglobin [id number] at 9.2 Will need antidiabetic medication on discharge Increase Lantus to 10 mg twice daily and continue with SSI Advised to continue with the diabetic diet Plan: DVT prophylaxis IV heparin Admission and Anticipated Discharge Date Admission Date: February 25, 2021 Subjective 02/26/2021 The patient seen and examined in telemetry unit and in Covid room She has been feeling a little better since admission Has cough and is requiring 2 L of oxygen to maintain saturation 02/27/2021 The patient was seen and examined in telemetry unit and in Covid room She has been feeling better but still requiring 6 L of oxygen to maintain saturation Complains to have some cough and minimal shortness of breath 02/28/2021 The patient was seen and examined in telemetry unit and in Covid room She has been feeling much better today Cough is diminished and denies any shortness of breath at rest She has been requiring 2 L of oxygen via nasal cannula to maintain saturation 03/01/2021 The patient was seen and examined in telemetry unit and Covid room She has been feeling much better and she is out of bed on a chair Decreasing cough and decreasing shortness of breath Still requiring 2 L to maintain saturation 03/02/2021 The patient was seen and examined in telemetry unit and in the Covid room She has been feeling much better, has minimal cough and minimal shortness of breath at rest Denies any other symptoms 03/03/2021 The patient was seen and examined in telemetry unit and in the Covid room She has been feeling better but gets shortness of breath and tachycardic with minimal exertion and the saturation drops She denies any other symptoms 03/04/2021 The patient was seen and examined in telemetry unit in Covid room She has been feeling a lot better and she passed the 2 step test She will be discharged home this afternoon Review of Systems Review of Systems: All systems reviewed and are unremarkable except as noted below Respiratory: + cough; no dyspnea and no dyspnea on exertion Physical Exam Physical Exam: Sitting at the edge of the bed with shortness of breath Constitutional: well developed, well nourished, + ill appearing and + obese Eyes: PERRL, conjunctivae normal, anicteric sclerae ENMT: external ear and nose normal, oropharynx normal Neck: trachea midline, no thyromegaly Respiratory: no respiratory distress, no labored breathing and does not use accessory muscles Auscultation: + diminished lung sounds; no crackles (Minimal on the left side) Cardiovascular: Rate/Rhythm: regular rate and regular rhythm; not tachycardic Heart Sounds: normal S1 and normal S2; no murmur Gastrointestinal (Abdomen): normal bowel sounds, soft, nontender, no hepatosplenomegaly Musculoskeletal: No acute arthritis in any joint Neurologic: Alert, awake and oriented x3. Generally weak but no focal sensory and motor deficit appreciated Lymphatic: no cervical or axillary lymphadenopathy Results & Data Results & Data ([facility]) Vital Signs (Past 12 Hours) Vital Signs Temp Pulse Pulse Pulse Pulse Resp Resp 03/04/21 12:11 36.6 C 60 18 03/04/21 09:59 102 H 84 69 24 03/04/21 08:55 36.5 C 54 L 18 03/04/21 03:07 36.6 C 54 L 22 Resp Resp BP Pulse Ox Pulse Ox Pulse Ox Pulse Ox 03/04/21 12:11 121/76 93 03/04/21 09:59 20 20 92 92 95 03/04/21 08:55 120/63 95 03/04/21 03:07 109/66 94 Laboratory Results Short CBC 03/03/21 03/04/21 Range/Units 06:11 07:16 WBC 15.25 H (4.8-10.8) K/uL Hgb 14.4 (12.0-16.0) g/dL Hct 43.1 (37-47) % Plt Count 275 (130-400) K/uL Magnesium 1.5 L (1.8-2.4) mg/dl [facility] 03/04/21 07:16 Sodium 137 Potassium 4.3 Chloride 105 Carbon Dioxide 27 BUN 17 Creatinine 0.41 L Glucose 144 H Calcium 8.9 Medications Administered Current Inpatient Medications Acetaminophen (Acetaminophen 325 Mg Tab) 650 mg PO Q4H PRN PRN Reason: Pain or Fever Stop: 03/27/21 23:04 Apixaban (Apixaban 5 Mg Tablet) 10 mg PO BID [facility] Stop: 03/09/21 09:01 Last Admin: 03/04/21 08:56 Dose: 10 mg Documented by: Dextrose (Dextrose 50% 50 Ml Syringe) 25 - 50 ml IV UD PRN; Protocol PRN Reason: Hypoglycemia Protocol Stop: 03/28/21 11:44 Glucagon (Glucagon For Inj 1 Mg Vial) 1 mg IM UD PRN; Protocol PRN Reason: Hypoglycemia Protocol Stop: 03/28/21 11:44 Glucose (Glucose 40% Gel 15 Gm Tube) 15 - 30 gm PO UD PRN; Protocol PRN Reason: Hypoglycemia Protocol Stop: 03/28/21 11:44 Glucose (Glucose 10 Tabs/Tube) 4 - 8 tabs PO UD PRN; Protocol PRN Reason: Hypoglycemia Protocol Stop: 03/28/21 11:44 Guaifenesin (Guaifenesin 600 Mg Tabcr) 1,200 mg PO Q12 [facility] Stop: 03/29/21 20:59 Last Admin: 03/04/21 08:57 Dose: 1,200 mg Documented by: Dexamethasone 6 mg/ Syringe 1.5 mls @ 1 mls/min IV DAILY [facility] Stop: 04/03/21 03:19 Last Admin: 03/04/21 03:48 Dose: 1 mls/min Documented by: Insulin Aspart (Insulin Aspart 100 Units/Ml 3 Ml Pen) 0 units SC ACHS [facility] Stop: 03/27/21 23:29 Last Admin: 03/04/21 13:01 Dose: 13 units Documented by: Insulin Glargine (Insulin Glargine Solostar 100 Units/Ml 3 Ml Pen) 15 units SC BID [facility] Stop: 04/03/21 08:59 Last Admin: 03/04/21 09:00 Dose: 15 units Documented by: Magnesium Oxide (Magnesium Oxide 400 Mg Tab) 400 mg PO BID [facility] Stop: 04/02/21 20:59 Last Admin: 03/04/21 08:57 Dose: 400 mg Documented by: Miscellaneous (Carbohydrates For Hypoglycemia ) 15 - 30 gm PO UD PRN PRN Reason: Hypoglycemia Treatment Stop: 03/28/21 11:44 Nitroglycerin (Nitroglycerin Sl 0.4 Mg/Tab Tab) 0.4 mg SL UD PRN PRN Reason: Chest Pain Stop: 03/27/21 23:04 Ondansetron HCl (Ondansetron Inj 2 Mg/Ml 2 Ml Vial) 4 mg IV Q6H PRN PRN Reason: Nausea Stop: 03/27/21 23:04
--- NOTE | 2021-03-12 07:19 | Discharge Summary ---
Date of Service March 12, 2021 Admission HPI Per Admitting Provider DICTATED BY: Reji Rincon MD DATE OF ADMISSION: 02/25/2021 CHIEF COMPLAINT: Shortness of breath. HISTORY OF PRESENT ILLNESS: This is a 45-year-old female with no significant past medical history who presents with shortness of breath. The patient does not speak Frisian. She is from [place]. I used translation services to get a history and physical. The patient says she has symptoms for more than a week now with cough, shortness of breath, poor appetite, loss of sense of smell and taste. She tested COVID positive. As per the ER, patient was tested COVID positive 2 days ago, comes with worsening shortness of breath. She denies any headache. No blurred visions, no earache, no runny nose, no sore throat, denies any chest pain, no nausea, no vomiting. She has some abdominal discomfort when she tries to eat. She is not moving her bowels because she is not eating. Normal bladder movements. Denies any hematuria or burning micturition. No rash. No travel history. Not vaccinated. In the ER, she was hypoxemic, currently requiring 6 liters of oxygen. With oxygen, she is resting comfortably and able to answering comfortably. Admission Exam Per Admitting Provider GENERAL: The patient is obese, not in acute distress. VITAL SIGNS: Temperature afebrile, pulse 102, respiratory rate 24, blood pressure 112/87, oxygen 95% on 6 liters. HEENT: Pupils equal, round and reactive to light. Oral mucosa moist. NECK: No JVD or neck masses. CARDIOVASCULAR: S1 and S2 heard. Regular rate and rhythm. No murmur, no gallop. RESPIRATORY: Normal AP diameter. No accessory muscle use. Mild bibasilar crackles. No wheezing. ABDOMEN: Soft, bowel sounds present, nontender, no distention. CENTRAL NERVOUS SYSTEM: Alert and awake. Obeys commands. No facial droop. Speech is clear. Moves extremities. EXTREMITIES: No edema, no erythema. Principal Diagnosis Acute hypoxic respiratory failure secondary to COVID-19 infection, pneumonia due to COVID-19, bilateral pulmonary embolism Discharge Exam Constitutional well developed, well nourished, + ill appearing and + obese Eyes PERRL, conjunctivae normal, anicteric sclerae ENMT external ear and nose normal, oropharynx normal Neck trachea midline, no thyromegaly Respiratory no respiratory distress, no labored breathing and does not use accessory muscles Auscultation: + diminished lung sounds; no crackles (Minimal on the left side) Cardiovascular Rate/Rhythm: regular rate and regular rhythm; not tachycardic Heart Sounds: normal S1 and normal S2; no murmur Gastrointestinal (Abdomen) normal bowel sounds, soft, nontender, no hepatosplenomegaly Lymphatic no cervical or axillary lymphadenopathy Discharge Data Allergies Allergy/AdvReac Type Severity Reaction Status Date / Time Unable to Assess Allergy Unverified 02/25/21 20:28 Consultations 02/25/21 19:10 ED Decision to Admit Stat Ordered Studies 02/25/21 17:08 CT angio chest PE protocol Stat Diabetes Follow up Diabetes Follow-up Needed for HgbA1c >9% Hospital Course (1) Acute hypoxemic respiratory failure: Secondary to COVID-19 pneumonia and pulmonary embolism She feels a little better but is still requiring more oxygen up to 6 L/min to maintain saturation Condition is better and requiring 2 L of oxygen to maintain saturation Clinically improved but still requiring 2 L of oxygen She has been ambulating in the room and occasionally requiring oxygen to maintain saturation Symptomatically much better Saturating normally on room air at rest She was advised to move around in the room as she is getting very short of breath with minimal exertion Saturating normally on room air She passed that to 2 step saturation test and she will be discharged home this afternoon (2) COVID-19: Family members has had Covid but without symptoms She has diagnosed with Covid during this admission Chest x-ray did not show patchy atelectasis/infiltration in the left left lung White count is slightly elevated-we will check any pro calcitonin elevation tomorrow Remains generally weak and lethargic and will not go to work for at least 1 week (3) Multifocal pneumonia: Secondary to COVID-19 pneumonia Has been getting remdesivir and dexamethasone Requiring 2 L of oxygen to maintain saturation We will continue current treatment Has been complaining of cough and congestion Inflammatory markers are improving We will try small dose of Lasix and continue with cough suppressant We will continue current management and she is clinically better Finish the course of remdesivir and will continue with dexamethasone She is ready to be discharged (4) Pulmonary embolism, bilateral: Acute Bilateral Pulmonary Embolism Has been getting intravenous heparin Maintenance therapy will be discussed on improvement We will discuss about Coumadin and or DOAC from tomorrow We will discuss about continued anticoagulation with the significant other/family members Heparin is a stopped and Eliquis 10 mg twice daily has been started She will continue with Eliquis for at least 6 months (5) Hyperglycemia: May have diabetes We will check hemoglobin [id number] at 9.2 Will need antidiabetic medication on discharge Increase Lantus to 10 mg twice daily and continue with SSI Advised to continue with the diabetic diet DVT prophylaxis IV heparin Total Time Total Time Spent Total Time Spent (In Minutes): 35 minutes Discharge Plan Discharge Items Patient Disposition: Home - Self-Care Reason For Visit: SOB Discharge Diagnosis: Acute hypoxic respiratory failure secondary to COVID-19 infection, pneumonia due to COVID-19, bilateral pulmonary embolism Condition on Discharge: Fair Activity: Resume your previous activity Activity Comment: Take it easy for the next week or so Non-emergency contact: Primary Care Provider Call non-emergency contact if: you have any medication questions and your symptoms worsen Follow-up/Referrals: PCP,NO [Primary Care Provider] - ([facility] [address], [place] [address] If you live in [facility] and do not have health insurance, please call this number. Contact [place] [facility] Number in [facility] to see if you qualify for free medical care.) Diet: Carb Consistent or DM2 Addtl Attending Provider Instructions: Please take precautions to avoid fall Do not go back to work for about 7 days as mentioned Take your Eliquis as advised and try not to miss any doses, you need to take this medicine for about 6 months. You may have to start medications to control your diabetes as an outpatient. Follow the home isolation for about 7 days instructions for COVID-19 as below Home Isolation COVID-19 Instructions The following information about Home Isolation is from the CDC Website: https://www.cdc.gov/coronavirus/2019-ncov/hcp/dwzodynq-hpbqoqn-nlclvr.html Stay home except to get medical care People who are mildly ill with COVID-19 are able to isolate at home during their illness. You should restrict activities outside your home, except for getting medical care. Do not go to work, school, or public areas. Avoid using public transportation, ride-sharing, or taxis. Separate yourself from other people and animals in your home People: As much as possible, you should stay in a specific room and away from other people in your home. Also, you should use a separate bathroom, if available. Animals: You should restrict contact with pets and other animals while you are sick with COVID-19, just like you would around other people. Although there have not been reports of pets or other animals becoming sick with COVID-19, it is still recommended that people sick with COVID-19 limit contact with animals until more information is known about the virus. When possible, have another member of your household care for your animals while you are sick. If you are sick with COVID-19, avoid contact with your pet, including petting, snuggling, being kissed or licked, and sharing food. If you must care for your pet or be around animals while you are sick, wash your hands before and after you interact with pets and wear a face mask. Call ahead before visiting your doctor If you have a medical appointment, call the healthcare provider and tell them that you have or may have COVID-19. This will help the healthcare providers office take steps to keep other people from getting infected or exposed. Wear a face mask You should wear a face mask when you are around other people (e.g., sharing a room or vehicle) or pets and before you enter a healthcare providers office. If you are not able to wear a face mask (for example, because it causes trouble breathing), then people who live with you should not stay in the same room with you, or they should wear a face mask if they enter your room. Cover your coughs and sneezes Cover your mouth and nose with a tissue when you cough or sneeze. Throw used tissues in a lined trash can. Immediately wash your hands with soap and water for at least 20 seconds or, if soap and water are not available, clean your hands with an alcohol-based hand valve repairer reclamation that contains at least 60% alcohol. Clean your hands often Wash your hands often with soap and water for at least 20 seconds, especially after blowing your nose, coughing, or sneezing; going to the bathroom; and before eating or preparing food. If soap and water are not readily available, use an alcohol-based hand valve repairer reclamation with at least 60% alcohol, covering all griffin rfaces of your hands and rubbing them together until they feel dry. Soap and water are the best option if hands are visibly dirty. Avoid touching your eyes, nose, and mouth with unwashed hands. Avoid sharing personal household items You should not share dishes, drinking glasses, cups, eating utensils, towels, or bedding with other people or pets in your home. After using these items, they should be washed thoroughly with soap and water. Clean all high-touch surfaces everyday High touch surfaces include counters, tabletops, doorknobs, bathroom fixtures, toilets, phones, keyboards, tablets, and bedside tables. Also, clean any surfaces that may have blood, stool, or body fluids on them. Use a household cleaning spray or wipe, according to the label instructions. Labels contain instructions for safe and effective use of the cleaning product including precautions you should take when applying the product, such as wearing gloves and making sure you have good ventilation during use of the product. Monitor your symptoms Seek prompt medical attention if your illness is worsening (e.g., difficulty breathing).Beforeseeking care, call your healthcare provider and tell them that you have, or are being evaluated for, COVID-19. Put on a face mask before you enter the facility. These steps will help the healthcare providers office to keep other people in the office or waiting room from getting infected or exposed. Ask your healthcare provider to call the local or formerly [facility] health departm ent. Persons who are placed under active monitoring or facilitated self- monitoring should follow instructions provided by their local health department or occupational health professionals, as appropriate. When working with your local health department check their available hours. If you have a medical emergency and need to call 911, notify the dispatch personnel that you have, or are being evaluated for COVID-19. If possible, put on a face mask before emergency medical services arrive. Discontinuing home isolation Patients with confirmed COVID-19 should remain under home isolation precautions until the risk of secondary transmission to others is thought to be low. The decision to discontinue home isolation precautions should be made on a eqlc-eq-ithu basis, in consultation with healthcare providers and [facility] and local health departments. Pending Studies at Discharge: No Stand-Alone Forms: My [facility], Work/School Release, Smoking Cessation Medications and DC Order Prescriptions: New Eliquis 5 mg Tablet 5 mg PO BID 30 Days Qty: 70 RF: 0 dexamethasone 6 mg tablet 6 mg PO DAILY Qty: 3 RF: 0 metformin 500 mg tablet 500 mg PO BID Qty: 60 RF: 0 Discharge Orders: Discharge Order (Routine); Ordered 03/04/21 Ordered By: Karen Hooks/Other Patient Handouts: A1C, High Blood Sugar (Hyperglycemia), Hypoglycemia (Low Blood Sugar), Managing Type 2 Diabetes, 5 Steps for Eating Healthier, Diabetes: Meal Planning, Type 2 Diabetes Admission Data Admit Date/Time: 02/25/21 20:12 Attending Provider: Whit Garcia Admit Provider: Reji Rincon Primary Care Provider: PCP,NO Other Providers: Reji Rincon ; Whit Garcia Other Interventions: Discharge Summary Assessment (RN) Last Done: 03/04/21 15:32
== END 2021-03-04 22:35 | disposition home or self-care (01) | DRG 177 ==
LOC: ED 16:44 → SUATTDRO 20:12 → 2S 20:12